=== PATIENT | female | born 1940 | race Caucasian/White ===

== ENCOUNTER 2018-12-21 16:57 | Inpatient (IN) | payer MEDICARE ==
[2018-12-21] MEDS ORDERED: SODIUM CHLORIDE 0.9% 1,000 ML IV ONE (19:32)
[2018-12-21] MEDS ORDERED: LIDOCAINE/EPINEPHR/TETRACAINE 5 ML BOTTLE TOPICAL ONE (19:32)
--- NOTE | 2018-12-21 19:35 | ED ---
ENT HPI - General Source: patient, RN notes reviewed, old records reviewed Mode of arrival: ambulatory Limitations: no limitations <Rasheeda Mann - Last Filed: 12/21/18 23:42> <Beto Adkins - Last Filed: 12/22/18 07:57> - General Chief complaint: ENT Stated complaint: Nose bleed Time Seen by Provider: 12/21/18 18:57 - History of Present Illness Initial comments: Patient is a 78-year-old female presents emergency department today as a transfer from [facility]. She presents emergency room today for an abnormal lab values including low platelets and low hemoglobin. She presented there for a prolonged nosebleed from the right naris. Patient states that she started having nosebleed at 8 PM last night. She is not currently on any blood thinners. She does have a history of leukemia. She reports she's been feeling increased fatigue over the past few days. She states that she has had a history of radiation on her brain. 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 She reports that she refuses nasal packing at [facility]. Patient was sent here for evaluation and ENT consult. (Rasheeda Mann) - Related Data Home Medications Medication Instructions Recorded Confirmed Albuterol Inhaler [Ventolin Hfa 1 - 2 puff INHALATION RT-Q6H PRN 12/21/18 Inhaler] Aspirin EC [Ecotrin Low Dose] 81 mg PO DAILY 12/21/18 12/21/18 Calcium Carbonate [Calcium] 1,200 mg PO DAILY 12/21/18 12/21/18 Cholecalciferol [Vitamin D3] 1,000 unit PO DAILY 12/21/18 12/21/18 Cyanocobalamin [Vitamin B-12] 500 mcg PO HS 12/21/18 12/21/18 Diclofenac Sodium [Voltaren Gel] 2 gram TOPICAL DAILY PRN 12/21/18 12/21/18 Ferrous Sulfate [Feosol] 325 mg PO DAILY 12/21/18 12/21/18 Fluticasone/Salmeterol [Advair 1 puff INHALATION RT-BID 12/21/18 12/21/18 250-50 Diskus] Losartan [Cozaar] 50 mg PO DAILY 12/21/18 12/21/18 Magnesium Oxide [Mag-Ox] 800 mg PO DAILY 12/21/18 12/21/18 Metoprolol Tartrate [Lopressor] 25 mg PO BID 12/21/18 12/21/18 Montelukast [Singulair] 10 mg PO DAILY 12/21/18 12/21/18 Multivitamins, Thera [Multivitamin 1 tab PO HS 12/21/18 12/21/18 (formulary)] Oxybutynin ER [Ditropan Xl] 10 mg PO DAILY 12/21/18 12/21/18 Potassium 99 mg PO DAILY 12/21/18 12/21/18 Pyridoxine [Vitamin B-6] 100 mg PO HS 12/21/18 12/21/18 Ranitidine HCl 150 mg PO BID 12/21/18 12/21/18 sitaGLIPtin [Januvia] 100 mg PO DAILY 12/21/18 12/21/18 valACYclovir HCL [Valacyclovir] 1,000 mg PO DAILY 12/21/18 12/21/18 Allergies Allergy/AdvReac Type Severity Reaction Status Date / Time ciprofloxacin [From Cipro] Allergy Unknown Verified 12/21/18 19:06 metoprolol [From Toprol XL] Allergy Unknown Verified 12/21/18 19:06 omeprazole [From Prilosec] Allergy Unknown Verified 12/21/18 19:06 Penicillins Allergy Unknown Verified 12/21/18 19:06 Sulfa (Sulfonamide Allergy Unknown Verified 12/21/18 19:06 Antibiotics) Review of Systems ROS Other: All systems not noted in ROS Statement are negative. <Rasheeda Mann - Last Filed: 12/21/18 23:42> ROS Other: All systems not noted in ROS Statement are negative. <Beto Adkins - Last Filed: 12/22/18 07:57> ROS Statement: Those systems with pertinent positive or pertinent negative responses have been documented in the HPI. Past Medical History Past Medical History: Asthma, Blood Disorder, Coronary Artery Disease (CAD), Diabetes Mellitus Additional Past Medical History / Comment(s): lymphedema History of Any Multi-Drug Resistant Organisms: None Reported Past Surgical History: Breast Surgery, Cholecystectomy, Hernia Repair, Hysterectomy, Orthopedic Surgery Past Psychological History: No Psychological Hx Reported Smoking Status: Never smoker Past Alcohol Use History: None Reported Past Drug Use History: None Reported <Rasheeda Mann - Last Filed: 12/21/18 23:42> General Exam Limitations: no limitations General appearance: alert, in no apparent distress Head exam: Present: atraumatic, normocephalic, normal inspection Eye exam: Present: normal appearance, PERRL, EOMI. Absent: scleral icterus, conjunctival injection, periorbital swelling ENT exam: Present: normal exam, normal oropharynx, mucous membranes moist, other (Patient has a slow bleeding and epistaxis from the right near. Evidence of previous cautery noted.) Neck exam: Present: normal inspection. Absent: tenderness, meningismus, lymphadenopathy Respiratory exam: Present: normal lung sounds bilaterally. Absent: respiratory distress, wheezes, rales, rhonchi, stridor Cardiovascular Exam: Present: regular rate, normal rhythm, normal heart sounds. Absent: systolic murmur, diastolic murmur, rubs, gallop, clicks GI/Abdominal exam: Present: soft, normal bowel sounds. Absent: distended, tenderness, guarding, rebound, rigid Extremities exam: Present: normal inspection, full ROM, normal capillary refill. Absent: tenderness, pedal edema, joint swelling, calf tenderness Back exam: Present: normal inspection Neurological exam: Present: alert, oriented X3, CN II-XII intact Psychiatric exam: Present: normal affect, normal mood Skin exam: Present: warm, dry, intact, normal color, other (Multiple contusions over her body.). Absent: rash <Rasheeda Mann - Last Filed: 12/21/18 23:42> <Beto Adkins - Last Filed: 12/22/18 07:57> - General Exam Comments Initial Comments: 78-year-old female. Alert and oriented 3. Patient appears in no significant distress. (Rasheeda Mann) Course <Rasheeda Mann - Last Filed: 12/21/18 23:42> <Beto Adkins - Last Filed: 12/22/18 07:57> Vital Signs 12/21/18 12/21/18 12/21/18 17:32 19:53 22:00 Temperature 98 F Pulse Rate 84 81 71 Respiratory 18 16 16 Rate Blood Pressure 136/69 110/70 110/79 O2 Sat by Pulse 95 98 100 Oximetry 12/22/18 00:50 Temperature Pulse Rate 82 Respiratory 16 Rate Blood Pressure 146/54 O2 Sat by Pulse 99 Oximetry - Reevaluation(s) Reevaluation #1: 12/21/18 23:42 Patient is to have bleeding after her trying to instill TX eye ointment to cotton ball of the nose. She eventually agreed to nasal packing. 2 Merocel nasal packing were inserted into the right nare. (Rasheeda Mann) Reevaluation #2: 12/22/18 07:56 CODE BLUE note: Patient had been admitted to the fourth floor roof 482. 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 She apparently is found to have a near syncopal episode/vasovagal episode when trying to get up this morning. She had no loss of consciousness. I did respond to a CODE BLUE to her room. She was awake alert oriented 3 he did appear to be pale she did adequate vital signs upon my examination lung sounds are clear heart sounds were within normal limits regular rate rhythm with an adequate blood pressure. No further intervention on my part was indicated at that time. Care was turned back over to nursing staff for continued evaluation. (Beto Adkins) Procedures <Rasheeda Mann - Last Filed: 12/21/18 23:42> <Beto Adkins - Last Filed: 12/22/18 07:57> - Procedures Initial comment: Patient had right nasal packing using 2 Rossana's. I coated the Lyle cells with antibiotic ointment inserted and thePatient tolerated the procedure well. There is evidence of Afrin. (Rasheeda Mann) Medical Decision Making - Lab Data Result diagrams: 12/21/18 19:45 12/21/18 19:45 <Rasheeda Mann - Last Filed: 12/21/18 23:42> - Lab Data Result diagrams: 12/22/18 06:49 12/22/18 06:49 <Beto Adkins - Last Filed: 12/22/18 07:57> - Medical Decision Making Patient is a 78-year-old female with a history of leukemia currently being treated by Dr. Gunter. They stated that her Leukemia was not benefit to start chemotherapy or radiation. She presents today with complaint of nosebleed for the past day. Her hemoglobin was 8 and [facility]. We rechecked it at this time 07.6. She is continued bleeding. She initially refused nasal packing. I attempted TXa Larissa ball over the nose and the Patient still continued to have bleeding. She eventually agreed to nasal packing. Lab work does show significant leukocytosis. She also states she is scheduled for an iron transfusion according to Dr. Gunter for tomorrow at 10 AM. She has had increased fatigue. Platelets are low at 50 at this time. Patient will be admitted this time for the continued bleeding I will recheck a CBC. Her hemoglobin is less than 7 she'll require transfusion. Vitals have been stable. (Rasheeda Mann) - Lab Data Lab Results 12/21/18 12/21/18 12/21/18 Range/Units 19:45 19:45 19:45 WBC 66.8 H* (3.8-10.6) k/uL RBC 2.65 L (3.80-5.40) m/uL Hgb 7.7 L (11.4-16.0) gm/dL Hct 26.3 L (34.0-46.0) % MCV 99.4 (80.0-100.0) fL MCH 29.2 (25.0-35.0) pg MCHC 29.3 L (31.0-37.0) g/dL RDW 15.5 (11.5-15.5) % Plt Count 52 L (150-450) k/uL Neutrophils % (Manual) 71 % Band Neutrophils % 6 % Lymphocytes % (Manual) 4 % Monocytes % (Manual) 4 % Metamyelocytes % 3 % Myelocytes % 7 % Promyelocytes % 7 % Neutrophils # (Manual) 51.40 H (1.3-7.7) k/uL Lymphocytes # (Manual) 2.67 (1.0-4.8) k/uL Monocytes # (Manual) 2.67 H (0-1.0) k/uL Metamyelocytes # (Man) 2.00 H (0) k/uL Myelocytes # (Manual) 4.68 H (0) k/uL Promyelocytes # (Man) 4.68 H (0) k/uL Nucleated RBCs 0 (0-0) /100 WBC Manual Slide Review Performed Toxic Vacuolation Present Large Platelets Present Polychromasia Present Hypochromasia Marked Poikilocytosis Slight Poikilocytosis (manual Present Macrocytosis Slight PT 10.6 (9.0-12.0) sec INR 1.0 (<1.2) APTT 24.1 (22.0-30.0) sec Sodium 140 (137-145) mmol/L Potassium 4.5 (3.5-5.1) mmol/L Chloride 107 (98-107) mmol/L Carbon Dioxide 24 (22-30) mmol/L Anion Gap 9 mmol/L BUN 41 H (7-17) mg/dL Creatinine 1.04 (0.52-1.04) mg/dL Est GFR (CKD-EPI)AfAm 60 (>60 ml/min/1.73 sqM) Est GFR (CKD-EPI)NonAf 52 (>60 ml/min/1.73 sqM) Glucose 127 H (74-99) mg/dL Calcium 8.6 (8.4-10.2) mg/dL Total Bilirubin 0.5 (0.2-1.3) mg/dL AST 29 (14-36) U/L ALT 24 (9-52) U/L Alkaline Phosphatase 60 (38-126) U/L Total Protein 5.9 L (6.3-8.2) g/dL Albumin 3.6 (3.5-5.0) g/dL Blood Type Blood Type Confirm Blood Type Recheck Antibody Screen Crossmatch Spec Expiration Date 12/21/18 12/21/18 Range/Units 19:45 21:40 WBC (3.8-10.6) k/uL RBC (3.80-5.40) m/uL Hgb (11.4-16.0) gm/dL Hct (34.0-46.0) % MCV (80.0-100.0) fL MCH (25.0-35.0) pg MCHC (31.0-37.0) g/dL RDW (11.5-15.5) % Plt Count (150-450) k/uL Neutrophils % (Manual) % Band Neutrophils % % Lymphocytes % (Manual) % Monocytes % (Manual) % Metamyelocytes % % Myelocytes % % Promyelocytes % % Neutrophils # (Manual) (1.3-7.7) k/uL Lymphocytes # (Manual) (1.0-4.8) k/uL Monocytes # (Manual) (0-1.0) k/uL Metamyelocytes # (Man) (0) k/uL Myelocytes # (Manual) (0) k/uL Promyelocytes # (Man) (0) k/uL Nucleated RBCs (0-0) /100 WBC Manual Slide Review Toxic Vacuolation Large Platelets Polychromasia Hypochromasia Poikilocytosis Poikilocytosis (manual Macrocytosis PT (9.0-12.0) sec INR (<1.2) APTT (22.0-30.0) sec Sodium (137-145) mmol/L Potassium (3.5-5.1) mmol/L Chloride (98-107) mmol/L Carbon Dioxide (22-30) mmol/L Anion Gap mmol/L BUN (7-17) mg/dL Creatinine (0.52-1.04) mg/dL Est GFR (CKD-EPI)AfAm (>60 ml/min/1.73 sqM) Est GFR (CKD-EPI)NonAf (>60 ml/min/1.73 sqM) Glucose (74-99) mg/dL Calcium (8.4-10.2) mg/dL Total Bilirubin (0.2-1.3) mg/dL AST (14-36) U/L ALT (9-52) U/L Alkaline Phosphatase (38-126) U/L Total Protein (6.3-8.2) g/dL Albumin (3.5-5.0) g/dL Blood Type O Positive Blood Type Confirm O Positive Blood Type Recheck CABO Indicated Antibody Screen NEGATIVE Crossmatch See Detail Spec Expiration Date 12/24/2018 - 1738 Disposition Is patient prescribed a controlled substance at d/c from ED?: No Time of Disposition: 23:45 <Rasheeda Mann - Last Filed: 12/21/18 23:42> <Beto Adkins - Last Filed: 12/22/18 07:57> Clinical Impression: Leukemia, Nosebleed Disposition: ADMITTED IP TO THIS [facility] Condition: Stable
[2018-12-21 20:05] LABS: HCT 26.3 % (34.0-46.0); HGB 7.7 gm/dL (11.4-16.0); Hypochromasia Marked; MCH 29.2 pg (25.0-35.0); MCHC 29.3 g/dL (31.0-37.0); MCV 99.4 fL (80.0-100.0); Macrocytosis Slight; Mean Platelet Volume 8.8; Poikilocytosis Slight; RBC 2.65 m/uL (3.80-5.40); RDW 15.5 % (11.5-15.5)
[2018-12-21 20:11] LABS: WBC 66.8 k/uL (3.8-10.6)
[2018-12-21 20:14] LABS: Partial Thromboplastin Time 24.1 sec (22.0-30.0); Prothrombin Time 10.6 sec (9.0-12.0)
[2018-12-21 20:16] LABS: Albumin 3.6 g/dL (3.5-5.0); Calcium 8.6 mg/dL (8.4-10.2); Potassium 4.5 mmol/L (3.5-5.1); Total Bilirubin 0.5 mg/dL (0.2-1.3); Total Protein 5.9 g/dL (6.3-8.2)
[2018-12-21] MEDS ORDERED: TRANEXAMIC ACID 1,000 MG/10 ML VIAL MISCELLANE STA (20:22)
[2018-12-21 20:28] LABS: Band Neutrophils % 6 %; Lymphocytes # (M) 2.67 k/uL (1.0-4.8); Metamyelocytes % 3 %; Monocytes # (M) 2.67 k/uL (0-1.0); Myelocytes # (M) 4.68 k/uL (0); Myelocytes % 7 %; Neutrophils % (M) 71 %; Nucleated Red Blood Cells 0 /100 WBC (0-0); Promyelocytes # (M) 4.68 k/uL (0); Promyelocytes % 7 %; Total Cells Counted 200
[2018-12-21 20:29] LABS: Poikilocytosis (M) Present; Polychromasia Present
[2018-12-21 20:30] LABS: Platelet Count 52 k/uL (150-450)
[2018-12-21 20:31] LABS: Large Platelets Present; Toxic Vacuolation Present
[2018-12-21] MEDS ORDERED: OXYMETAZOLINE 0.05% NASL SPRAY 1 SPRAY BOTTLE NASAL STA (23:19)
[2018-12-21] MEDS ORDERED: LORazepam 2 MG/ML INJ IV STA (23:41)
[2018-12-21] MEDS ORDERED: oxyCODONE-APAP 5-325MG 1 EACH TAB PO PRN (23:47)
[2018-12-21] MEDS ORDERED: LORazepam 2 MG/ML INJ IV PRN (23:47)
[2018-12-21] MEDS ORDERED: NALOXONE 0.4 MG/ML 1 ML VIAL IV PRN (23:47)
[2018-12-22 01:26] LABS: HCT 23.6 % (34.0-46.0); HGB 7.1 gm/dL (11.4-16.0); Hypochromasia Marked; MCH 30.2 pg (25.0-35.0); MCHC 30.3 g/dL (31.0-37.0); MCV 99.8 fL (80.0-100.0); Macrocytosis Slight; Poikilocytosis Slight; RBC 2.36 m/uL (3.80-5.40); RDW 15.6 % (11.5-15.5)
[2018-12-22 01:35] LABS: Platelet Count 51 k/uL (150-450); WBC 62.5 k/uL (3.8-10.6)
[2018-12-22 01:53] LABS: Band Neutrophils % 4 %; Metamyelocytes # (M) 1.25 k/uL (0); Metamyelocytes % 2 %; Monocytes # (M) 1.25 k/uL (0-1.0); Myelocytes # (M) 6.88 k/uL (0); Myelocytes % 11 %; Neutrophils % (M) 73 %; Nucleated Red Blood Cells 0 /100 WBC (0-0); Total Cells Counted 200
[2018-12-22 01:54] LABS: Large Platelets Present; Polychromasia Present
[2018-12-22] MEDS ORDERED: ALBUTEROL NEBULIZED 2.5 MG/3 ML INHALATION PRN (02:05)
[2018-12-22] MEDS ORDERED: DICLOFENAC SODIUM GEL 100 GM TUBE TOPICAL PRN (02:05)
[2018-12-22 07:21] LABS: Anisocytosis Slight; HCT 26.7 % (34.0-46.0); HGB 8.2 gm/dL (11.4-16.0); Hypochromasia Marked; MCH 30.1 pg (25.0-35.0); MCHC 30.8 g/dL (31.0-37.0); MCV 97.7 fL (80.0-100.0); Macrocytosis Slight; Mean Platelet Volume 7.4; Platelet Count 45 k/uL (150-450); Poikilocytosis Moderate; RBC 2.73 m/uL (3.80-5.40); RDW 16.5 % (11.5-15.5)
[2018-12-22 07:22] LABS: WBC 59.2 k/uL (3.8-10.6)
[2018-12-22 07:23] LABS: Calcium 8.2 mg/dL (8.4-10.2); Potassium 4.1 mmol/L (3.5-5.1)
--- NOTE | 2018-12-22 08:45 | US ---
EXAMINATION TYPE: US venous doppler duplex LE BI DATE OF EXAM: 12/22/2018 8:27 AM COMPARISON: NONE CLINICAL HISTORY: bleeding. anemia, no h/o dvt SIDE PERFORMED: bilateral TECHNIQUE: The lower extremity deep venous system is examined utilizing real time linear array sonog leonard with graded compression, doppler sonography and color-flow sonography. VESSELS IMAGED: External Iliac Vein (EIV) Common Femoral Vein Deep Femoral Vein Greater Saphenous Vein * Femoral Vein Popliteal Vein Small Saphenous Vein * Proximal Calf Veins (* superficial vessels) Grayscale, color doppler, spectral doppler imaging performed of the deep veins of the lower extremiti es. There is normal flow, compressibility, vascular waveforms. Right Leg: Appears negative for DVT Left Leg: Appears negative for DVT *only did color flow images with doppler in left popiteal due to A Team being called on patient and u rgency to finish exam. IMPRESSION: No sonographic evidence of deep venous thrombosis within the bilateral lower extremities .
[2018-12-22 09:00] LABS: Band Neutrophils % 4 %; Eosinophils # (M) 1.18 k/uL (0-0.7); Lymphocytes # (M) 2.96 k/uL (1.0-4.8); Metamyelocytes # (M) 0.59 k/uL (0); Metamyelocytes % 1 %; Monocytes # (M) 2.96 k/uL (0-1.0); Myelocytes # (M) 3.55 k/uL (0); Myelocytes % 6 %; Neutrophils % (M) 77 %; Nucleated Red Blood Cells 0 /100 WBC (0-0); Promyelocytes # (M) 1.18 k/uL (0); Promyelocytes % 2 %; Total Cells Counted 200
[2018-12-22] MEDS ORDERED: LOSARTAN 50 MG TAB PO SCH (09:00)
[2018-12-22] MEDS ORDERED: NON-FORMULARY DRUG (Potassium [Potassium] 99 MG) PO SCH (09:00)
[2018-12-22] MEDS ORDERED: FAMOTIDINE 20 MG TAB PO SCH (09:00)
[2018-12-22] MEDS ORDERED: PANTOPRAZOLE 40 MG/10 ML VIAL IV SCH (09:00)
[2018-12-22 09:01] LABS: Polychromasia Present; Toxic Granulation Present
[2018-12-22 09:02] LABS: Anisocytosis (M) Present; Poikilocytosis (M) Present
[2018-12-22] MEDS: SYMBICORT 80-4.5 MCG INHALER INHALATION SCH ×2 (09:05→19:59)
--- NOTE | 2018-12-22 09:12 | HP ---
HISTORY AND PHYSICAL DATE OF SERVICE: 12/21/2018 CHIEF COMPLAINT: Epistaxis. HISTORY OF PRESENT ILLNESS: This 78-year-old woman with a past medical history of apparent leukemia, history of CAD, history of diabetes mellitus type 2, history of lymphedema, breast surgery, cholecystectomy being followed by Dr. Gunter in the outpatient setting was set to see Dr. Gunter tomorrow, but however the patient is complaining of epistaxis from the right naris and the patient was referred from [facility] where the nasal packing was done with some control, but hemoglobin has dropped to 7.7 and 7.1. Transfusion arranged at this time. WBC 62.5, platelets also reduced to 51. The other coagulation parameters are normal. The patient is taking aspirin. There is no history of any fever, rigors. No history of headache, loss of consciousness, seizures. The patient is followed by Dr. Blanca Dominguez in the outpatient setting. PAST MEDICAL HISTORY: History of blood disorder, leukemia, asthma, CAD, diabetes mellitus, lymphedema. MEDICATIONS: Medications prior to admission include the home medications: 1. Ranitidine 150 mg p.o. b.i.d. 2. Valacyclovir 1000 mg daily. 3. Januvia 100 mg p.o. daily. 4. Vitamin B6, 100 mg q.h.s. 5. Potassium 99 mg p.o. daily. 6. Ditropan XL 10 mg p.o. daily. 7. Multivitamins one p.o. daily. 8. Singular 10 mg p.o. daily. 9. Lopressor 25 mg b.i.d. 10.Magnesium oxide 800 mg daily. 11.Cozaar 50 mg p.o. daily. 12.Advair 250/50 one puff b.i.d. 13.Iron sulfate 325 mg daily. 14.Voltaren gel 2 grams daily p.r.n. 15.Vitamin B12, 500 mcg p.o. q.h.s. 16.Vitamin D3, 1000 daily. 17.Calcium 1200 mg p.o. daily. 19.Aspirin 81 mg p.o. daily. 20.Ventolin 1 to 2 puffs q.6 p.r.n. ALLERGIES: Allergies are CIPRO, METOPROLOL, OMEPRAZOLE, PENICILLIN, SULFA. FAMILY HISTORY: No history of heart disease or strokes in the family. SOCIAL HISTORY: No history of smoking. No history of alcohol intake. REVIEW OF SYSTEMS: ENT: As mentioned earlier. CARDIOVASCULAR SYSTEM: No angina. RESPIRATORY SYSTEM: No cough or hemoptysis. : No dysuria. GI: No nausea, vomiting, diarrhea. NERVOUS SYSTEM: No numbness or weakness. ALLERGY/IMMUNOLOGY: No asthma. MUSCULOSKELETAL: As mentioned earlier. HEMATOLOGY/ONCOLOGY: As mentioned earlier. ENDOCRINE: ntd CONSTITUTIONAL: As mentioned earlier. DERMATOLOGY: Negative. RHEUMATOLOGY: Negative. PSYCHIATRY: As mentioned earlier. PHYSICAL EXAMINATION: The patient is alert and oriented x2. Pulse 79, blood pressure is 108/48, respiration 18, temperature 98.5, pulse ox 99% on room air. HEENT: Conjunctiva normal. Epistaxis on the right side which is packed. Neck is no jugular venous distention. No carotid bruit. No lymph node enlargement. CARDIOVASCULAR: S1, S2 muffled. No S3, no S4. RESPIRATORY: Breath sounds diminished at the bases. A few scattered rhonchi. No crackles. ABDOMEN: Soft, nontender. No mass palpable. LEGS: No edema, no swelling. NERVOUS SYSTEM: Higher function as mentioned. Moves all 4 limbs. No focal deficits. LYMPHATICS: No lymphadenopathy of the neck, axillae or groin. SKIN: No ulcer, rash or bleeding. JOINTS: No active deforming arthropathy. LABS: The labs are WBC 66.8, hemoglobin 7.7. Repeat labs are noted. ASSESSMENT: 1. Epistaxis with acute blood loss anemia. 2. History of leukemia. 3. Increased WBC. 4. Thrombocytopenia. 5. History of asthma. 6. History of coronary artery disease. 7. Diabetes mellitus type 2. 8. Lymphedema. 9. History of cholecystectomy. 10.History of hernia surgery. 11.FULL CODE. RECOMMENDATIONS AND DISCUSSION: This 78-year-old woman who presented with multiple complex medical issues, we will monitor the patient closely. Continue the current medications, continue symptomatic treatment. I would recommend 1 unit transfusion, platelets on a p.r.n. basis if the bleeding continues. Otherwise ENT evaluation. Consult Dr. Gunter. Resume the rest of the medications. Hold aspirin. Guarded prognosis because of multiple complex medical issues. Further recommendations to follow. See orders for details. MMODL / IJN: [id number] / MTDD
[2018-12-22] MEDS ORDERED: DILTIAZEM 5 MG/ML 5 ML VIAL IVP STA (09:15)
[2018-12-22] MEDS: DILTIAZEM 125 MG in SODIUM CHLORIDE 0.9% 100 ML IV SCH (10:03)
[2018-12-22] MEDS: CALCIUM CARBONATE 500 MG CHEWABLE PO SCH (12:58)
[2018-12-22] MEDS: CHOLECALCIFEROL 1,000 UNIT TAB PO SCH (12:58)
[2018-12-22 12:59] LABS: Glucose,Whole Blood 142 mg/dL (75-99)
[2018-12-22] MEDS: FERROUS SULFATE 325 MG TAB PO SCH (12:59)
[2018-12-22] MEDS: MAGNESIUM OXIDE 400 MG TAB PO SCH (12:59)
--- NOTE | 2018-12-22 14:26 | P.CONS ---
History of Present Illness - Reason for Consult Consult date: 12/22/18 Cytopenias Requesting physician: Rasheeda Mann - Chief Complaint Cytopenias - History of Present Illness Ms Alegria is a pleasant white female, with overall well-controlled medical problems at baseline. The patient had had a currently stent in her LAD placed in late 2016. The patient had been on Brilinta, and had developed some petechiae in her mouth, in 09/2018. She had a CBC revealing a white count in the 8 the 200,000 range, hemoglobin in the 9-10 range with MCV of 107. Platelets were around 50,000. The patient had a bone marrow aspiration biopsy done at [facility] showing hypercellularity, with 95% cellularity and left-sided shift. She had no evidence of increased blasts (1.1%) , increased fibrosis or dysplastic changes. She did appear to have low iron stores. The patient was found to be negative for JAK2, MPL and CALR mutations. CBC in 02/21 was normal. The patient was admitted in 09/2018 2 [facility] for pneumonia and sepsis. During that time hemoglobin dropped into the 7 range, with platelets down into the 30,000 range. WBC was in the 100,000 range. Differential showed a predominance of neutrophils persistently. The patient received IV iron during her hospitalization. After discharge, she followed up with Dr. Esquivel, at the [facility]. Review of his notes indicates that the patient was felt to have a myeloproliferative disorder, that was not last classifiable at that time. additional gene testing was ordered for completion of workup. Those results were not available at the time of her first consultation here. The patient had an EGD and colonoscopy in 11/25 for her iron deficiency that was negative. She has been taking oral iron. As the patient wanted to follow with hematology closer to home, she was referred here for further evaluation and recommendations The patient has a history of bilateral breast cancer diagnosed in 2001, treated with lumpectomy and radiation. Exact pathology is not known. However she states that she was not recommended chemotherapy, or hormonal treatment after radiation. the patient is being seen to set up hematology care for her recent diagnosis of myeloproliferative disorder. Diagnostic circumstances as described. At this time the patient is actually fairly asymptomatic other than fatigue which is chronic. She does not appear to have any evidence of splenomegaly. CT chest abdomen and pelvis from 09/24 had not shown any significant pathology - The pathology and implications were discussed in detail with her and her family. Her CBC today shows a persistent leukocytosis with neutrophilia, though the levels are improved at 70,000. The clinical picture is quite consistent with a myeloproliferative disorder. However with absence of significant fibrosis, as well as marker mutations, at this time, this appears to be an unspecified type. Additional gene testing was ordered with the myeloid DX panel at the [facility] but those results are not available. I have requested again through the office. GI workup is negative so far. She is following with gastroenterology at [facility] - Platelets remained low, though in the same range. She tends to bruise easily , but only on her extremities where she has thin skin. She is currently on baby aspirin. Per Dr. Esquivel this was felt to be likely safe for her to take , based on risk benefit given her history of CA at the time she was seen in office her counts were in safe range (2 days ago), with no definite gene target , as well as return of performance status and symptomatic to baseline, the recommendation would be to follow her with observation. Signs and symptoms of progression were discussed in detail. - EGD and colonoscopy reports as well as bone marrow reports have been requested from [facility]. I have asked our office to request because was not located in office chart today. Myeloid DX results will be requested from [facility] again as well - Multiple labs, as well as physician notes , CT reports reviewed and summarized above. On 12/20/18 when seen in office WBC 70K (mostly comprised of neutrophils. , Hemoglobin 9.9, Platlets 27K. Iron Deficiency was evidenced with Saturation 8.7% , and Ferritin 55, Iron = 29, Vitamin B12 studies sufficient She presented to emergency room from [facility] with persistent nose bleed failed to clot. Review of Systems A 14 point review of systems assessed and completed and all neg exceptr HPI. Past Medical History Past Medical History: Asthma, Blood Disorder, Coronary Artery Disease (CAD), Diabetes Mellitus Additional Past Medical History / Comment(s): lymphedema History of Any Multi-Drug Resistant Organisms: None Reported Past Surgical History: Breast Surgery, Cholecystectomy, Hernia Repair, Hysterectomy, Orthopedic Surgery Past Anesthesia/Blood Transfusion Reactions: No Reported Reaction Past Psychological History: No Psychological Hx Reported Smoking Status: Never smoker Past Alcohol Use History: None Reported Past Drug Use History: None Reported - Past Family History Father History Unknown: Yes Medications and Allergies Home Medications Medication Instructions Recorded Confirmed Type Albuterol Inhaler [Ventolin Hfa 1 - 2 puff INHALATION RT-Q6H PRN 12/21/18 History Inhaler] Aspirin EC [Ecotrin Low Dose] 81 mg PO DAILY 12/21/18 12/21/18 History Calcium Carbonate [Calcium] 1,200 mg PO DAILY 12/21/18 12/21/18 History Cholecalciferol [Vitamin D3] 1,000 unit PO DAILY 12/21/18 12/21/18 History Cyanocobalamin [Vitamin B-12] 500 mcg PO HS 12/21/18 12/21/18 History Diclofenac Sodium [Voltaren Gel] 2 gram TOPICAL DAILY PRN 12/21/18 12/21/18 History Ferrous Sulfate [Feosol] 325 mg PO DAILY 12/21/18 12/21/18 History Fluticasone/Salmeterol [Advair 1 puff INHALATION RT-BID 12/21/18 12/21/18 History 250-50 Diskus] Losartan [Cozaar] 50 mg PO DAILY 12/21/18 12/21/18 History Magnesium Oxide [Mag-Ox] 800 mg PO DAILY 12/21/18 12/21/18 History Metoprolol Tartrate [Lopressor] 25 mg PO BID 12/21/18 12/21/18 History Montelukast [Singulair] 10 mg PO DAILY 12/21/18 12/21/18 History Multivitamins, Thera [Multivitamin 1 tab PO HS 12/21/18 12/21/18 History (formulary)] Oxybutynin ER [Ditropan Xl] 10 mg PO DAILY 12/21/18 12/21/18 History Potassium 99 mg PO DAILY 12/21/18 12/21/18 History Pyridoxine [Vitamin B-6] 100 mg PO HS 12/21/18 12/21/18 History Ranitidine HCl 150 mg PO BID 12/21/18 12/21/18 History sitaGLIPtin [Januvia] 100 mg PO DAILY 12/21/18 12/21/18 History valACYclovir HCL [Valacyclovir] 1,000 mg PO DAILY 12/21/18 12/21/18 History Allergies Allergy/AdvReac Type Severity Reaction Status Date / Time ciprofloxacin [From Cipro] Allergy Unknown Verified 12/21/18 19:06 metoprolol [From Toprol XL] Allergy Unknown Verified 12/21/18 19:06 omeprazole [From Prilosec] Allergy Unknown Verified 12/21/18 19:06 Penicillins Allergy Unknown Verified 12/21/18 19:06 Sulfa (Sulfonamide Allergy Unknown Verified 12/21/18 19:06 Antibiotics) Physical Exam Vitals: Vital Signs Temp Pulse Pulse Resp BP BP Pulse Ox 12/22/18 09:21 103.0 F H 161 H 22 100/51 99 12/22/18 09:11 103.0 F H 151 H 22 94/74 98 12/22/18 07:00 99.7 F H 100 14 109/44 94 L 12/22/18 03:42 98.7 F 83 22 112/53 91 L 12/22/18 02:24 98.6 F 81 20 107/49 94 L 12/22/18 01:54 98.5 F 79 18 108/48 99 12/22/18 01:44 97.5 F L 72 18 126/59 100 12/22/18 01:08 97.6 F 79 18 146/51 100 12/22/18 00:50 82 16 146/54 99 12/21/18 22:00 71 16 110/79 100 12/21/18 19:53 81 16 110/70 98 12/21/18 17:32 98 F 84 18 136/69 95 Intake and Output 12/21/18 12/22/18 12/22/18 22:59 06:59 14:59 Intake Total 0 0 Balance 0 0 Intake: Blood Product 0 0 Platelet Irr Pheresis 0 Acda Unit [id number] Rc Pheresis 2 As3 Unit 0 [id number] Other: Voiding Method Toilet Indwelling Catheter # Voids 2 Weight 73.936 kg Gen: Alert and Oriented, NAD Neck: Supple, Trachea Midline Head NC, NT Lungs: Diminished Bibasilar, No increased effort Heart: Tachy, Reg Abdomen: Soft, ND, NT Ext: BLE Edema No lymphadenopathy Results CBC & Chem 7: 12/22/18 06:49 12/22/18 06:49 Labs: Abnormal Lab Results - Last 24 Hours (Table) 12/21/18 12/21/18 12/21/18 Range/Units 19:45 19:45 19:45 WBC 66.8 H* (3.8-10.6) k/uL RBC 2.65 L (3.80-5.40) m/uL Hgb 7.7 L (11.4-16.0) gm/dL Hct 26.3 L (34.0-46.0) % MCHC 29.3 L (31.0-37.0) g/dL RDW (11.5-15.5) % Plt Count 52 L (150-450) k/uL Neutrophils # (Manual) 51.40 H (1.3-7.7) k/uL Lymphocytes # (Manual) (1.0-4.8) k/uL Monocytes # (Manual) 2.67 H (0-1.0) k/uL Eosinophils # (Manual) (0-0.7) k/uL Metamyelocytes # (Man) 2.00 H (0) k/uL Myelocytes # (Manual) 4.68 H (0) k/uL Promyelocytes # (Man) 4.68 H (0) k/uL Pathologist Review See comment A Chloride (98-107) mmol/L BUN 41 H (7-17) mg/dL Glucose 127 H (74-99) mg/dL POC Glucose (mg/dL) (75-99) mg/dL Calcium (8.4-10.2) mg/dL Total Protein 5.9 L (6.3-8.2) g/dL Crossmatch See Detail 12/22/18 12/22/18 12/22/18 Range/Units 01:00 06:49 06:49 WBC 62.5 H* 59.2 H* (3.8-10.6) k/uL RBC 2.36 L 2.73 L (3.80-5.40) m/uL Hgb 7.1 L 8.2 L (11.4-16.0) gm/dL Hct 23.6 L 26.7 L (34.0-46.0) % MCHC 30.3 L 30.8 L (31.0-37.0) g/dL RDW 15.6 H 16.5 H (11.5-15.5) % Plt Count 51 L 45 L (150-450) k/uL Neutrophils # (Manual) 48.10 H 47.90 H (1.3-7.7) k/uL Lymphocytes # (Manual) 5.00 H (1.0-4.8) k/uL Monocytes # (Manual) 1.25 H 2.96 H (0-1.0) k/uL Eosinophils # (Manual) 1.18 H (0-0.7) k/uL Metamyelocytes # (Man) 1.25 H 0.59 H (0) k/uL Myelocytes # (Manual) 6.88 H 3.55 H (0) k/uL Promyelocytes # (Man) 1.18 H (0) k/uL Pathologist Review Chloride 108 H (98-107) mmol/L BUN 42 H (7-17) mg/dL Glucose 118 H (74-99) mg/dL POC Glucose (mg/dL) (75-99) mg/dL Calcium 8.2 L (8.4-10.2) mg/dL Total Protein (6.3-8.2) g/dL Crossmatch 12/22/18 Range/Units 12:57 WBC (3.8-10.6) k/uL RBC (3.80-5.40) m/uL Hgb (11.4-16.0) gm/dL Hct (34.0-46.0) % MCHC (31.0-37.0) g/dL RDW (11.5-15.5) % Plt Count (150-450) k/uL Neutrophils # (Manual) (1.3-7.7) k/uL Lymphocytes # (Manual) (1.0-4.8) k/uL Monocytes # (Manual) (0-1.0) k/uL Eosinophils # (Manual) (0-0.7) k/uL Metamyelocytes # (Man) (0) k/uL Myelocytes # (Manual) (0) k/uL Promyelocytes # (Man) (0) k/uL Pathologist Review Chloride (98-107) mmol/L BUN (7-17) mg/dL Glucose (74-99) mg/dL POC Glucose (mg/dL) 142 H (75-99) mg/dL Calcium (8.4-10.2) mg/dL Total Protein (6.3-8.2) g/dL Crossmatch Assessment and Plan Plan: Assessment and Recommendations 1. Leukocytosis - Left shit. - Recent diagnosis at [facility] with [employer] Dr. Stuart for a myloproliferative disorder, although per dictation appears to have no identifiable molecular markers to indicate a specific type at this time. I have requested the reports to be uploaded to system - She will likely require Stem Cell Transplant for Treatment. 2. Normocytic Microchromic Anemia: Secondary to Underlying Myeloproliferative diagnosis and Acute Blood Loss Anemia - Transfuse Hemoglobin less than 7 - ALL PRODUCTS IRRADIATED< LEKOREDUCE< CMV NEG PLEASE as she is potential Stem Cell Transplant Candidate - Parental Iron after confirmation of no bacteremia. 3. Thrombocytopenia: - Transfuse for s/s bleeding under 50K and/or less than 10K 4. Epistaxis: Improved 5. Febrile - Secondary to number one versus transfusion - Also resonable to rule out underlying infection: Blood Cultures x2, Chest Xray and UA C and S - Check Influenza. Viral Swab. Physician Attest: I have completed the full history and physical and devloped the impression and plan, I agree with above dictations by Ramona Abel NP. Dictated as a scribe
[2018-12-22 15:03] LABS: Partial Thromboplastin Time 24.9 sec (22.0-30.0)
--- NOTE | 2018-12-22 15:04 | XR ---
EXAMINATION TYPE: XR chest 1V portable DATE OF EXAM: 12/22/2018 COMPARISON: NONE HISTORY: Fever of unknown origin TECHNIQUE: Single frontal view of the chest is obtained. FINDINGS: Biapical lucency suggests a component of underlying emphysema. Cardiomediastinal silhouett e is mildly enlarged. Mild multilevel degenerative changes of the spine are noted. No sizable pneumot horax or pleural effusion. No focal consolidation. Generalized osseous demineralization is seen with moderate degenerative changes of the acromioclavicular joints. Surgical mireya are seen within the c hest wall soft tissues. IMPRESSION: No focal consolidation to suggest just pneumonia. Mildly enlarged cardiomediastinal silh ouette.
[2018-12-22] MEDS: MONTELUKAST 10 MG TAB PO SCH (15:55)
[2018-12-22] MEDS: LINAGLIPTIN 5 MG TABLET PO SCH (16:01)
[2018-12-22] MEDS: METOPROLOL TARTRATE 25 MG TAB PO SCH (16:33)
[2018-12-22 16:37] LABS: Glucose,Whole Blood 136 mg/dL (75-99)
[2018-12-22] MEDS: OXYBUTYNIN 10 MG TAB.ER.24 PO SCH (16:37)
[2018-12-22] MEDS: valACYclovir HCL 1,000 MG TABLET PO SCH (16:37)
--- NOTE | 2018-12-22 17:41 | PN ---
PROGRESS NOTE DATE OF SERVICE: 12/22/2018. 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 The patient apparently had epistaxis which could be multifactorial. The patient also had blood-loss anemia. The patient was seeing Dr. Cruz previously. The patient received blood transfusion and platelet transfusion at this time. The ENT evaluation in progress also. WBC 59.9, hemoglobin is 8.2 this morning. PAST MEDICAL HISTORY: Reviewed. REVIEW OF SYSTEMS: ENT: Mentioned earlier. Cardiovascular System: No angina or palpitations. Respiratory: No cough. GI as mentioned earlier. : No dysuria. MEDICARE COMPLIANCE AUDITOR: No focal deficits. CURRENT MEDICATIONS ARE: Reviewed and include: 1. Ventolin 2.5 q.6h p.r.n. 3. TUMS daily. 4. Vitamin D3 1000 daily. 5. Vitamin B12 500 mg daily. 6. Voltaren gel. 7. Diltiazem 5 mg daily. 8. Tradjenta 5 mg p.o. daily. 9. Ativan 0.5 mg q.h.s. 10.Cozaar. 11.Magnesium oxide. 12.Singular. 13.Narcan. 14.Ditropan. 15.Protonix. 16.Valtrex. 17.Vitamin B6. PHYSICAL EXAM: Patient is alert, oriented x3. Pulse is 130, regular. Blood pressure is 100/ 40. Respiration 20. Temperature normal. Pulse ox 91% on room air. HEENT: Conjunctivae pale. Otherwise oral mucosa moist. Neck is no jugular venous distention. No carotid bruit. No lymph node enlargement. Cardiovascular system: S1, S2 regular. RESPIRATORY: Breath sounds diminished in the bases. Bilateral scattered rhonchi and crackles. ABDOMEN: Soft, nontender. No mass palpable. Legs are no edema. No swelling. NEUROLOGICAL: No focal deficits. LAB STUDIES: WBC 9.9, hemoglobin is 8.2, platelets of 45. Other labs are noted. ASSESSMENT: 1. Acute epistaxis with acute blood loss anemia status post transfusion. 2. 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 3. Paroxysmal atrial fibrillation with fast ventricular rate. 4. Thrombocytopenia. 5. Increased WBC. 6. History of asthma. 7. History of coronary artery disease. 8. Diabetes mellitus type 2. 9. Lymphedema. 10.History of cholecystectomy. 11.History of hernia surgery. 12.FULL CODE. RECOMMENDATIONS AND DISCUSSION: Recommend to continue current medication, continue with monitoring. Symptomatic treatment. Otherwise at this time we will repeat labs. ENT evaluation. The hemoglobin appears to be stable at this time at 8.2. We will repeat blood count. Closely follow with Hematology/Oncology. The patient might need further platelet transfusions and blood transfusion depending upon the hematology parameters. Otherwise, prognosis guarded because of multiple complex medical issues. Cardizem has been initiated for the atrial fibrillation. Cardiology is consulted. Further recommendations to follow. MMODL / IJN: [id number] / GLYNN
--- NOTE | 2018-12-22 18:37 | ECHOF ---
Referral Reason:afib MEASUREMENTS -------- HEIGHT: 172.7 cm WEIGHT: 73.9 kg BP: 100/46 RVIDd: 3.4 cm (< 3.3) IVSd: 1.3 cm (0.6 - 1.1) LVIDd: 5.6 cm (3.9 - 5.3) LVPWd: 1.3 cm (0.6 - 1.1) IVSs: 1.5 cm LVIDs: 4.1 cm LVPWs: 1.5 cm LA Diam: 5.1 cm (2.7 - 3.8) LAESV Index (A-L): 41.17 ml/m Ao Diam: 2.7 cm (2.0 - 3.7) AV Cusp: 1.6 cm (1.5 - 2.6) LA Diam: 4.7 cm (2.7 - 3.8) EPSS: 0.6 cm RAP: 5.00 mmHg RVSP: 39.12 mmHg MV EF SLOPE: 103.06 mm/s (70 - 150) MV EXCURSION: 1.70 cm (> 18.000) FINDINGS -------- Resting tachycardia (HR>100bpm). This was a technically adequate study. The left ventricular size is normal. There is mild concentric left ventricular hypertrophy. Overa ll left ventricular systolic function is normal with, an EF between 55 - 60 %. The right ventricle is mildly enlarged. LA is severely dilated >40 ml/m2 RA appears enlarged. Aortic valve is trileaflet and is mildly thickened. There is no evidence of aortic regurgitation. There is no evidence of aortic stenosis. The mitral valve leaflets are mildly thickened. Mild mitral annular calcification present. Modera te mitral regurgitation is present. Mild tricuspid regurgitation present. There is mild pulmonary hypertension. The right ventricular systolic pressure, as measured by Doppler, is 39.12mmHg. Trace/mild (physiologic) pulmonic regurgitation. The aortic root size is normal. Normal inferior vena cava with normal inspiratory collapse consistent with estimated right atrial pre ssure of 5 mmHg. There is a small, generalized pericardial effusion present. CONCLUSIONS -------- 1. Resting tachycardia (HR>100bpm). 2. This was a technically adequate study. 3. The left ventricular size is normal. 4. There is mild concentric left ventricular hypertrophy. 5. Overall left ventricular systolic function is normal with, an EF between 55 - 60 %. 6. The right ventricle is mildly enlarged. 7. LA is severely dilated >40 ml/m2 8. RA appears enlarged. 9. Aortic valve is trileaflet and is mildly thickened. 10. The mitral valve leaflets are mildly thickened. 11. Mild mitral annular calcification present. 12. Moderate mitral regurgitation is present. 13. Mild tricuspid regurgitation present. 14. There is mild pulmonary hypertension. 15. The right ventricular systolic pressure, as measured by Doppler, is 39.12mmHg. 16. Trace/mild (physiologic) pulmonic regurgitation. 17. The aortic root size is normal. 18. There is a small, generalized pericardial effusion present. PRINT FINISHING WORKER: Aleksey Joel RDCS
--- NOTE | 2018-12-22 19:48 | CONS ---
CONSULTATION Mrs. Alegria is a 78-year-old female who was transferred from [place] for persistent epistaxis. Patient has a history of coronary artery disease, status post stenting of the LAD in [address] Singh. She also has a history of hypertension, diet-controlled diabetes mellitus, and a history of myeloproliferative disease. The patient has had significant epistaxis requiring packing. Today she went to the bathroom and became dizzy, hypotensive and somewhat disoriented but did not have syncope. Upon her return to her bed, she went into atrial fibrillation with rapid ventricular response. She is awake and alert at this time. She continues to be in atrial fibrillation with episodes of rapid ventricular response. She has no prior history of atrial fibrillation. She saw her director of supply chain in August and at that time was stable. She had no symptoms of exertional chest discomfort. She has some symptoms of dyspnea with exertion. She denies any significant peripheral edema. She has no dizziness, palpitation or syncope. Her coronary risk factors are remarkable for the history of hypertension, remote history of smoking. She is diabetic and hyperlipidemic. MEDICATIONS: 1. Ranitidine. 2. Valacyclovir. 3. Januvia. 4. Potassium. 5. Ditropan. 6. Singulair 10 mg daily. 7. Lopressor 25 mg twice a day. 8. Cozaar 50 mg daily. 9. Advair. 10.Iron. 11.Voltaren. 12.Calcium. 13.Aspirin. REVIEW OF SYSTEMS: RESPIRATORY SYSTEM: She has history of asthma but no recent cough or fever. GI SYSTEM: She has no recent GI bleeding, no peptic ulcer disease. SYSTEM: No dysuria or hematuria. NERVOUS SYSTEM: No history of stroke or seizure. PHYSICAL EXAMINATION: This is a 78-year-old female, alert and oriented, in no apparent distress. Packing in place. Blood pressure 100/46 with a heart rate in the 130s. HEAD: Normocephalic. Eyes: Sclerae anicteric. NECK: No bruit. LUNGS: No wheezes or rales. HEART: Irregularly irregular. S1, S2. No S3. With a systolic murmur at the base, ejection type. No diastolic murmur. No rub. ABDOMEN: Soft, nontender. Positive bowel sounds. No organomegaly. EXTREMITIES: Plus one edema. LAB DATA: White blood cells of 66,000, hemoglobin of 7.7, platelet count of 52. BUN and creatinine of 41 and 1.04 on admission. Today her white blood cells are 59.2, hemoglobin 8.2, platelet count of 45,000. Her BUN creatinine are 42 and 0.89. Her EKG revealed atrial fibrillation with rapid ventricular response and nonspecific ST- T wave changes. Her EKG shows no clear infiltrate. IMPRESSION: 1. Atrial fibrillation, new onset. Patient presented in sinus mechanism. Rapid ventricular response. The patient is not a candidate for anticoagulation in view of her pancytopenia and recent epistaxis. 2. History of coronary artery disease, status post stenting of the LAD in 2017; appears to be stable. 3. Myeloproliferative disease, followed by Dr. Gunter. 4. Anemia. 5. Thrombocytopenia. 6. History of hypertension. 7. History of diabetes. RECOMMENDATIONS: From the cardiac standpoint, I will continue on the beta giacomo. I will stop her losartan because of her low blood pressure. She is on IV Cardizem at this time. We will obtain echocardiogram with Doppler. I will also check her thyroid function tests. I will add a statin to her regimen in view of her coronary artery disease and diabetes. Depending on her progress, further recommendations will be made. At this time she is not a candidate for anticoagulation. I have discussed those finding with the patient and her . Thank you for this consult. Will follow with you. NEEL / JOSE: [id number] /
--- NOTE | 2018-12-22 20:03 | CONS ---
CONSULTATION REASON FOR CONSULTATION: Epistaxis. HISTORY: This is a 78-year-old white female who was admitted last night after arriving from [facility] with uncontrolled epistaxis. The epistaxis had gone on for about a day. She has had epistaxis on a lifelong basis intermittently and has had nasal packing as well as cauterization at various points. She had cauterization in [place] at one point that helped for a few years as an adult. 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 She in September had developed petechiae and was ultimately diagnosed with leukemia and has had thrombocytopenia since then. She has had anemia and iron deficiency as well as platelets of 27,000 recently, just 2 days ago. She did have attempted cautery of the right side of the nose in [place], which was not helpful. She refused packing. She presented to the ER last night and Merocel packs were placed in the right side of the nose. She did have some mild bleeding since then, but currently this is controlled. She has been seen by her oncologist, but no notes are in the chart as yet. PAST MEDICAL HISTORY: Positive for: 1. Asthma. 2. Leukemia. 3. Coronary artery disease. 4. Diabetes. PAST SURGICAL HISTORY: 1. Breast surgery. 2. Cholecystectomy. 3. Herniorrhaphy. 4. Hysterectomy. 5. Orthopedic surgery. ALLERGIES: 1. CIPRO. 2. TOPROL. 3. PENICILLIN. 4. OMEPRAZOLE. 5. SULFA. HOME MEDICATIONS: 1. Albuterol. 2. Calcium. 3. Vitamin D. 4. B12. 5. Voltaren. 6. Feosol. 7. Advair Diskus. 8. Losartan. 9. Lopressor. 10.Magnesium oxide. 11.Singulair. 12.Oxybutynin. 13.Potassium. 14.Vitamin B6. 15.Ranitidine. 16.Januvia. 17.Aspirin, which has been held. REVIEW OF SYSTEMS: As noted in the chart already. Noncontributory other than as above. PHYSICAL EXAMINATION: Febrile earlier but is afebrile now. Vital signs overall are stable otherwise. GENERAL: Well-developed elderly white female in no acute distress. HEENT: Head normocephalic, atraumatic. Ears: Bilaterally the canals are good. Tympanic membranes unremarkable and mobile. Nose shows old blood, left nasal cavity. No active bleeding. There is nasal septal perforation which appears well healed. There are 2 Merocel packs in the right side of the nose which have old blood but no active bleeding. The oropharynx shows no posterior bleeding. The neck is supple without adenopathy or tenderness. ASSESSMENT: 1. Right-sided epistaxis. 2. Anemia. 3. Thrombocytopenia. 4. Leukemia. PLAN: The patient currently has 2 Merocel packs in the right side of the nose, and this has stabilized her epistaxis. Therefore these will be left in place for at least 2 more days and therefore through the weekend. Her aspirin has been held. Certainly there is an issue with her thrombocytopenia, and this may lend itself to continued bleeding with or without the packing. Depending on her inpatient status, she may be able to have these packs removed in our office as an outpatient or as an inpatient if she is still here in the hospital early next week. She does have a long history of epistaxis, and this likely is compounded by the previous radiotherapy also. Will track the patient's status, and if there are questions in the meantime, please feel free to contact me. Dr. Ugalde will be covering call on Tuesday and Tuesday. MMODL / IJN: [id number] /
[2018-12-22 20:37] LABS: Glucose,Whole Blood 127 mg/dL (75-99)
[2018-12-22] MEDS: MULTIVITAMINS, THERA 1 EACH TAB PO SCH (21:10)
[2018-12-22] MEDS: CYANOCOBALAMIN 500 MCG TAB PO SCH (21:10)
[2018-12-22] MEDS: ACETAMINOPHEN TAB 325 MG TAB PO PRN (21:11)
[2018-12-22] MEDS: PYRIDOXINE 50 MG TAB PO SCH (23:09)
[2018-12-23] MEDS: METOPROLOL TARTRATE 25 MG TAB PO SCH ×3 (00:41→22:15)
[2018-12-23 05:21] LABS: Anisocytosis Slight; Hypochromasia Marked; MCH 29.4 pg (25.0-35.0); MCHC 30.2 g/dL (31.0-37.0); MCV 97.3 fL (80.0-100.0); Macrocytosis Slight; Mean Platelet Volume 6.7; Poikilocytosis Moderate; RBC 2.06 m/uL (3.80-5.40); RDW 16.3 % (11.5-15.5)
[2018-12-23 05:22] LABS: Platelet Count 63 k/uL (150-450)
[2018-12-23 05:27] LABS: Magnesium 2.4 mg/dL (1.6-2.3)
[2018-12-23 06:56] LABS: Band Neutrophils % 8 %; Lymphocytes # (M) 2.72 k/uL (1.0-4.8); Metamyelocytes # (M) 1.09 k/uL (0); Metamyelocytes % 2 %; Monocytes # (M) 4.34 k/uL (0-1.0); Myelocytes # (M) 1.63 k/uL (0); Myelocytes % 3 %; Neutrophils % (M) 74 %; Nucleated Red Blood Cells 2 /100 WBC (0-0); Promyelocytes # (M) 1.09 k/uL (0); Promyelocytes % 2 %; Total Cells Counted 200; WBC 54.3 k/uL (3.8-10.6)
[2018-12-23] MEDS: SYMBICORT 80-4.5 MCG INHALER INHALATION SCH ×2 (06:59→20:35)
[2018-12-23 07:07] LABS: Glucose,Whole Blood 122 mg/dL (75-99)
[2018-12-23] MEDS: FERROUS SULFATE 325 MG TAB PO SCH (09:17)
[2018-12-23] MEDS: CHOLECALCIFEROL 1,000 UNIT TAB PO SCH (09:17)
[2018-12-23] MEDS: MONTELUKAST 10 MG TAB PO SCH (09:17)
[2018-12-23] MEDS: MAGNESIUM OXIDE 400 MG TAB PO SCH (09:17)
[2018-12-23] MEDS: ATORVASTATIN 40 MG TAB PO SCH (09:17)
[2018-12-23] MEDS: LINAGLIPTIN 5 MG TABLET PO SCH (09:17)
[2018-12-23] MEDS: ACETAMINOPHEN TAB 325 MG TAB PO PRN (09:17)
[2018-12-23] MEDS: CALCIUM CARBONATE 500 MG CHEWABLE PO SCH (09:18)
[2018-12-23] MEDS: valACYclovir HCL 1,000 MG TABLET PO SCH (10:19)
[2018-12-23] MEDS: OXYBUTYNIN 10 MG TAB.ER.24 PO SCH (10:19)
[2018-12-23 12:27] LABS: Glucose,Whole Blood 127 mg/dL (75-99)
[2018-12-23 12:54] LABS: Anisocytosis Slight; HCT 23.1 % (34.0-46.0); HGB 7.3 gm/dL (11.4-16.0); Hypochromasia Marked; MCH 30.2 pg (25.0-35.0); MCHC 31.5 g/dL (31.0-37.0); MCV 95.8 fL (80.0-100.0); Macrocytosis Slight; Mean Platelet Volume 8.5; Poikilocytosis Moderate; RBC 2.41 m/uL (3.80-5.40); RDW 16.7 % (11.5-15.5)
[2018-12-23 12:57] LABS: WBC 58.9 k/uL (3.8-10.6)
[2018-12-23 13:21] LABS: Platelet Count 57 k/uL (150-450)
--- NOTE | 2018-12-23 15:58 | PN ---
PROGRESS NOTE DATE OF SERVICE: 12/23/2018. HISTORY: This 78-year-old woman was admitted with acute epistaxis, also had ongoing myeloproliferative disorder. Patient also has thrombocytopenia. ENT and Cardiology are following the patient closely. Patient has a nasal packing. No chest pain. No palpitations. No fever. REVIEW OF SYSTEMS: CARDIOVASCULAR: No angina. RESPIRATORY: As mentioned. GI: As mentioned. : No nausea. NERVOUS SYSTEM: No numbness or weakness. EXAM: Alert and oriented x3. Pulse is 66, blood pressure 100/56, respirations 18, temperature 97.2, pulse ox 94% on room air. HEENT: Conjunctivae normal. NECK: No JVD. HEART: S1 and S2 muffled. LUNGS: Breath sounds diminished in the bases. Few scattered rhonchi. ABDOMEN: Soft. NERVOUS SYSTEM: No focal deficits. LABS: WBC ntd, platelets are 57. Other labs are noted. MEDICATIONS: Current medications reviewed, include: 1. Tylenol 650 every 4 hours p.r.n. 2. Ventolin 2.5. 3. Lipitor. 4. Symbicort b.i.d. 5. Tums. 6. Vitamins D3. 7. Vitamin B12. 8. Cardizem. 9. Ativan. 10.Lopressor. 11.Singular. 12.Ditropan. 13.Percocet. 14.Vitamin B6. 15.Valtrex. ASSESSMENT: 1. Acute epistaxis right-sided with acute blood loss anemia status post transfusions. 2. History of ongoing myeloproliferative disorder, possibly chronic myeloid leukemia. 3. Paroxysmal atrial fibrillation with fast ventricular rate. 4. Thrombocytopenia. 5. Increased WBC. 6. History of asthma. 7. History of coronary artery disease. 8. Diabetes mellitus type 2. 9. History of cholecystectomy. 10.History of hernia surgery. 11.FULL CODE. DISCUSSION: In this 72-year-old gentleman who presented with multiple complex medical issues , we will monitor the patient closely, continue the current management. Continue nasal packing. White count is elevated. We will continue to monitor. Hold antiplatelet agents and anticoagulation. The patient is on beta blockers as well. Further recommendations to follow. MMODL / IJN: [id number] / MTDD
--- NOTE | 2018-12-23 16:34 | P.PN ---
Subjective Progress Note Date: 12/23/18 Principal diagnosis: Myeloproliferative Disease, Leukocytosis, Bicytopenia Hemoglobin was 6 this am and received 2 units of irradiated PRBC, repeat 7.1. Objective - Vital Signs Vital signs: Vital Signs Temp 97.4 F L 12/23/18 12:00 Pulse 66 12/23/18 12:00 Resp 18 12/23/18 13:42 BP 100/56 12/23/18 12:00 Pulse Ox 94 L 12/23/18 12:00 Intake & Output 12/22/18 12/23/18 12/23/18 18:59 06:59 18:59 Intake Total 610 120 740 Output Total 306 642 4496 Balance -15 -520 -910 Weight 74.5 kg Intake: IV 70 120 80 NS 70 120 80 Intake, IV Titration 40 Amount Diltiazem 125 mg In 40 Sodium Chloride 0.9% 100 ml @ 10 MG/HR 10 mls/hr IV .[id number] [facility] Rx#: [id number] Oral 500 350 Blood Product 0 310 Platelet Irr Pheresis 0 Acda Unit [id number] Rc Irr As1 Unit 310 [id number] Output: Urine 224 219 5900 Uretheral (Mueller) 600 Other: Voiding Method Indwelling Catheter Indwelling Catheter Indwelling Catheter - Exam Gen: Alert and Oriented, NAD Neck: Supple, Trachea Midline Head NC, NT Lungs: Diminished Bibasilar, No increased effort Heart: Tachy, Reg Abdomen: Soft, ND, NT Ext: BLE Edema No lymphadenopathy - Labs CBC & Chem 7: 12/23/18 12:40 12/23/18 04:46 Labs: Abnormal Lab Results - Last 24 Hours (Table) 12/21/18 12/22/18 12/22/18 Range/Units 19:45 16:28 20:35 WBC (3.8-10.6) k/uL RBC (3.80-5.40) m/uL Hgb (11.4-16.0) gm/dL Hct (34.0-46.0) % MCHC (31.0-37.0) g/dL RDW (11.5-15.5) % Plt Count (150-450) k/uL Neutrophils # (Manual) (1.3-7.7) k/uL Monocytes # (Manual) (0-1.0) k/uL Metamyelocytes # (Man) (0) k/uL Myelocytes # (Manual) (0) k/uL Promyelocytes # (Man) (0) k/uL Nucleated RBCs (0-0) /100 WBC Chloride (98-107) mmol/L BUN (7-17) mg/dL Creatinine (0.52-1.04) mg/dL Glucose (74-99) mg/dL POC Glucose (mg/dL) 136 H 127 H (75-99) mg/dL Calcium (8.4-10.2) mg/dL Magnesium (1.6-2.3) mg/dL Crossmatch See Detail 12/23/18 12/23/18 12/23/18 Range/Units 04:46 04:46 07:05 WBC 54.3 H* (3.8-10.6) k/uL RBC 2.06 L (3.80-5.40) m/uL Hgb 6.0 L* D (11.4-16.0) gm/dL Hct 20.0 L (34.0-46.0) % MCHC 30.2 L (31.0-37.0) g/dL RDW 16.3 H (11.5-15.5) % Plt Count 63 L (150-450) k/uL Neutrophils # (Manual) 44.50 H (1.3-7.7) k/uL Monocytes # (Manual) 4.34 H (0-1.0) k/uL Metamyelocytes # (Man) 1.09 H (0) k/uL Myelocytes # (Manual) 1.63 H (0) k/uL Promyelocytes # (Man) 1.09 H (0) k/uL Nucleated RBCs 2 H (0-0) /100 WBC Chloride 108 H (98-107) mmol/L BUN 46 H (7-17) mg/dL Creatinine 1.10 H (0.52-1.04) mg/dL Glucose 107 H (74-99) mg/dL POC Glucose (mg/dL) 122 H (75-99) mg/dL Calcium 8.0 L (8.4-10.2) mg/dL Magnesium 2.4 H (1.6-2.3) mg/dL Crossmatch 12/23/18 12/23/18 Range/Units 12:25 12:40 WBC 58.9 H* (3.8-10.6) k/uL RBC 2.41 L (3.80-5.40) m/uL Hgb 7.3 L (11.4-16.0) gm/dL Hct 23.1 L (34.0-46.0) % MCHC (31.0-37.0) g/dL RDW 16.7 H (11.5-15.5) % Plt Count 57 L (150-450) k/uL Neutrophils # (Manual) (1.3-7.7) k/uL Monocytes # (Manual) (0-1.0) k/uL Metamyelocytes # (Man) (0) k/uL Myelocytes # (Manual) (0) k/uL Promyelocytes # (Man) (0) k/uL Nucleated RBCs (0-0) /100 WBC Chloride (98-107) mmol/L BUN (7-17) mg/dL Creatinine (0.52-1.04) mg/dL Glucose (74-99) mg/dL POC Glucose (mg/dL) 127 H (75-99) mg/dL Calcium (8.4-10.2) mg/dL Magnesium (1.6-2.3) mg/dL Crossmatch Assessment and Plan Plan: Assessment and Recommendations 1. Leukocytosis - Left shit. - Recent diagnosis at [facility] with Enterprise Application Administrator Dr. Stuart for a myloproliferative disorder, although per dictation appears to have no identifiable molecular markers to indicate a specific type at this time. I have requested the reports to be uploaded to system - She will likely require Stem Cell Transplant for Treatment. 2. Normocytic Microchromic Anemia: Secondary to Underlying Myeloproliferative diagnosis and Acute Blood Loss Anemia - Transfuse Hemoglobin less than 7 - ALL PRODUCTS IRRADIATED< LEKOREDUCE< CMV NEG PLEASE as she is potential Stem Cell Transplant Candidate - Parental Iron ordered - Transfusion 2 units today hemoglobin 6 3. Thrombocytopenia: - Transfuse for s/s bleeding under 50K and/or less than 10K 4. Epistaxis: Improved 5. Febrile - Secondary to number one versus transfusion - Also resonable to rule out underlying infection: Blood Cultures x2, Chest Xray and UA C and S - Check Influenza. Viral Swab. Afebrile since 12/22/18 @1600 Plan: - recheck CBC, Mag, Phos, Uric Acid, BMP in am - Continue supportive care and transfusions - Will continue to follow along with you Physician Attest: I have discussed the completed history and physical and devloped the impression and plan, I agree with above dictations by Ramona Abel NP. Dictated as a scribe
[2018-12-23 16:42] LABS: Glucose,Whole Blood 150 mg/dL (75-99)
[2018-12-23] MEDS: DILTIAZEM 125 MG in SODIUM CHLORIDE 0.9% 100 ML IV SCH (17:52)
[2018-12-23 19:18] LABS: Anisocytosis Slight; HCT 24.6 % (34.0-46.0); HGB 7.8 gm/dL (11.4-16.0); Hypochromasia Marked; MCH 30.4 pg (25.0-35.0); MCHC 31.9 g/dL (31.0-37.0); MCV 95.3 fL (80.0-100.0); Mean Platelet Volume 7.5; Poikilocytosis Marked; RBC 2.58 m/uL (3.80-5.40); RDW 16.6 % (11.5-15.5)
[2018-12-23 19:24] LABS: WBC 67.9 k/uL (3.8-10.6)
[2018-12-23 19:43] LABS: Platelet Count 63 k/uL (150-450)
[2018-12-23 20:53] LABS: Glucose,Whole Blood 146 mg/dL (75-99)
[2018-12-23] MEDS: CYANOCOBALAMIN 500 MCG TAB PO SCH (22:15)
[2018-12-23] MEDS: PYRIDOXINE 50 MG TAB PO SCH (22:15)
[2018-12-23] MEDS: MULTIVITAMINS, THERA 1 EACH TAB PO SCH (22:16)
[2018-12-24] MEDS: SYMBICORT 80-4.5 MCG INHALER INHALATION SCH ×2 (05:56→20:01)
[2018-12-24 06:20] LABS: Glucose,Whole Blood 121 mg/dL (75-99)
[2018-12-24 07:02] LABS: Anisocytosis Slight; HCT 23.2 % (34.0-46.0); HGB 7.2 gm/dL (11.4-16.0); Hypochromasia Marked; MCH 29.4 pg (25.0-35.0); MCHC 30.8 g/dL (31.0-37.0); MCV 95.5 fL (80.0-100.0); Mean Platelet Volume 8.3; Platelet Count 52 k/uL (150-450); Poikilocytosis Moderate; RBC 2.43 m/uL (3.80-5.40); RDW 16.8 % (11.5-15.5)
[2018-12-24 07:09] LABS: Calcium 8.1 mg/dL (8.4-10.2); Magnesium 2.4 mg/dL (1.6-2.3); Phosphorus 3.5 mg/dL (2.5-4.5); Potassium 3.9 mmol/L (3.5-5.1); Uric Acid 10.4 mg/dL (3.7-7.4)
[2018-12-24 07:29] LABS: Band Neutrophils % 3 %; Eosinophils # (M) 0.61 k/uL (0-0.7); Monocytes # (M) 1.22 k/uL (0-1.0); Myelocytes # (M) 2.44 k/uL (0); Myelocytes % 4 %; Nucleated Red Blood Cells 0 /100 WBC (0-0)
[2018-12-24 07:30] LABS: Lymphocytes # (M) 5.49 k/uL (1.0-4.8); Neutrophils % (M) 80 %; Polychromasia Present; Promyelocytes # (M) 1.22 k/uL (0); Promyelocytes % 2 %; Total Cells Counted 200
[2018-12-24] MEDS: METOPROLOL TARTRATE 25 MG TAB PO SCH ×2 (08:53→20:38)
[2018-12-24] MEDS: ATORVASTATIN 40 MG TAB PO SCH (08:53)
[2018-12-24] MEDS: OXYBUTYNIN 10 MG TAB.ER.24 PO SCH (08:53)
[2018-12-24] MEDS: CALCIUM CARBONATE 500 MG CHEWABLE PO SCH (08:53)
[2018-12-24] MEDS: MONTELUKAST 10 MG TAB PO SCH (08:53)
[2018-12-24] MEDS: LINAGLIPTIN 5 MG TABLET PO SCH (08:53)
[2018-12-24] MEDS: CHOLECALCIFEROL 1,000 UNIT TAB PO SCH (08:53)
[2018-12-24] MEDS: MAGNESIUM OXIDE 400 MG TAB PO SCH (08:53)
[2018-12-24] MEDS: FERROUS SULFATE 325 MG TAB PO SCH (08:53)
[2018-12-24] MEDS: valACYclovir HCL 1,000 MG TABLET PO SCH (08:54)
[2018-12-24 12:06] LABS: Glucose,Whole Blood 118 mg/dL (75-99)
--- NOTE | 2018-12-24 14:53 | P.PN ---
Subjective Progress Note Date: 12/24/18 This is a pleasant 70-year-old female with history of coronary artery disease and prior LAD stent which was performed in 2016. She had been on Brilinta and developed some petechiae in her mouth in September 2018. She had been admitted to the hospital and [facility] for pneumonia and sepsis back in September 2018. She did receive iron during that hospitalization. She underwent an EGD and colonoscopy in November for iron deficiency which was negative. During this entire time it has been noted that the patient's platelets were low and remained low. She initially presented on this occasion to [facility] with a nosebleed and failure to clot. A cardiology consultation was initially requested because the patient went into atrial fibrillation.. The patient was seen and examined today, she continues to be in and out of A. fib but overall her heart rate maintains adequate control. She cannot be on anticoagulation in view of her pancytopenia and recent epistaxis. Objective - Vital Signs Vital signs: Vital Signs Temp 97.6 F 12/24/18 12:00 Pulse 112 H 12/24/18 12:00 Resp 20 12/24/18 12:00 BP 122/64 12/24/18 12:00 Pulse Ox 100 12/24/18 12:00 Intake & Output 12/23/18 12/24/18 12/24/18 18:59 06:59 18:59 Intake Total 740 240 Output Total 1350 750 Balance -610 -750 240 Weight 80 kg Intake: IV 80 NS 80 Oral 350 240 Blood Product 310 Rc Irr As1 Unit 310 [id number] Output: Urine 1350 750 Uretheral (Mueller) 300 400 Other: Voiding Method Indwelling Catheter Indwelling Catheter Indwelling Catheter # Voids 1 # Bowel Movements 1 - Exam PHYSICAL EXAMINATION: GENERAL: 78-year-old female in no acute distress at the time of my examination. HEENT: Head is atraumatic, normocephalic. Pupils equal, round. Sclera anicteric. Conjunctiva are clear. Mucous membranes of the mouth are moist. Neck is supple. There is no elevated jugular venous pressure.] bruit is heard. Patient does havepacking in. HEART EXAMINATION: Heart S1 S2 1 systolic murmur is heard at the base. CHEST EXAMINATION: Lungs are clear to auscultation and precussion. No chest wall tenderness is noted on palpation or with deep breathing. ABDOMEN: Soft, nontender. Bowel sounds are heard. No organomegaly noted. EXTREMITIES: 2+ peripheral pulses with trace evidence of peripheral edema and no calf tenderness noted. NEUROLOGIC patient is awake, alert and oriented x3. . - Labs CBC & Chem 7: 12/24/18 06:32 12/24/18 06:32 Labs: Abnormal Lab Results - Last 24 Hours (Table) 12/23/18 12/23/18 12/23/18 Range/Units 16:39 18:38 20:51 WBC 67.9 H* (3.8-10.6) k/uL RBC 2.58 L (3.80-5.40) m/uL Hgb 7.8 L (11.4-16.0) gm/dL Hct 24.6 L (34.0-46.0) % MCHC (31.0-37.0) g/dL RDW 16.6 H (11.5-15.5) % Plt Count 63 L (150-450) k/uL Neutrophils # (Manual) (1.3-7.7) k/uL Lymphocytes # (Manual) (1.0-4.8) k/uL Monocytes # (Manual) (0-1.0) k/uL Myelocytes # (Manual) (0) k/uL Promyelocytes # (Man) (0) k/uL Chloride (98-107) mmol/L BUN (7-17) mg/dL Glucose (74-99) mg/dL POC Glucose (mg/dL) 150 H 146 H (75-99) mg/dL Uric Acid (3.7-7.4) mg/dL Calcium (8.4-10.2) mg/dL Magnesium (1.6-2.3) mg/dL 12/24/18 12/24/18 12/24/18 Range/Units 06:18 06:32 06:32 WBC 61.0 H* (3.8-10.6) k/uL RBC 2.43 L (3.80-5.40) m/uL Hgb 7.2 L (11.4-16.0) gm/dL Hct 23.2 L (34.0-46.0) % MCHC 30.8 L (31.0-37.0) g/dL RDW 16.8 H (11.5-15.5) % Plt Count 52 L (150-450) k/uL Neutrophils # (Manual) 50.60 H (1.3-7.7) k/uL Lymphocytes # (Manual) 5.49 H (1.0-4.8) k/uL Monocytes # (Manual) 1.22 H (0-1.0) k/uL Myelocytes # (Manual) 2.44 H (0) k/uL Promyelocytes # (Man) 1.22 H (0) k/uL Chloride 111 H (98-107) mmol/L BUN 34 H (7-17) mg/dL Glucose 108 H (74-99) mg/dL POC Glucose (mg/dL) 121 H (75-99) mg/dL Uric Acid 10.4 H (3.7-7.4) mg/dL Calcium 8.1 L (8.4-10.2) mg/dL Magnesium 2.4 H (1.6-2.3) mg/dL 12/24/18 Range/Units 11:21 WBC (3.8-10.6) k/uL RBC (3.80-5.40) m/uL Hgb (11.4-16.0) gm/dL Hct (34.0-46.0) % MCHC (31.0-37.0) g/dL RDW (11.5-15.5) % Plt Count (150-450) k/uL Neutrophils # (Manual) (1.3-7.7) k/uL Lymphocytes # (Manual) (1.0-4.8) k/uL Monocytes # (Manual) (0-1.0) k/uL Myelocytes # (Manual) (0) k/uL Promyelocytes # (Man) (0) k/uL Chloride (98-107) mmol/L BUN (7-17) mg/dL Glucose (74-99) mg/dL POC Glucose (mg/dL) 118 H (75-99) mg/dL Uric Acid (3.7-7.4) mg/dL Calcium (8.4-10.2) mg/dL Magnesium (1.6-2.3) mg/dL Microbiology - Last 24 Hours (Table) 12/22/18 14:23 Blood Culture - Preliminary Blood No Growth after 24 hours Assessment and Plan Plan: Assessment and plan #1 paroxysmal atrial fibrillation patient not a candidate for anticoagulation because of pancytopenia and recent epistaxis #2 known history of coronary artery disease with prior LAD stent in 2017 #3 mild proliferative disease #4 anemia #5 thrombocytopenia #6 hypertension #7 diabetes Plan From cardiology's perspective we will continue this patient on her current medications. We'll follow her along with you now on an as-needed basis only, please don't hesitate to call us if he has any questions. DNP note has been reviewed, I agree with a documented findings and plan of care. Patient was seen and examined.
--- NOTE | 2018-12-24 16:51 | P.PN ---
Subjective Progress Note Date: 12/24/18 Principal diagnosis: Myeloproliferative Disease, Leukocytosis, Bicytopenia Hemoglobin was 7.2 and stable today Objective - Vital Signs Vital signs: Vital Signs Temp 97.9 F 12/24/18 16:00 Pulse 120 H 12/24/18 16:00 Resp 19 12/24/18 16:00 BP 140/53 12/24/18 16:00 Pulse Ox 97 12/24/18 16:00 Intake & Output 12/23/18 12/24/18 12/24/18 18:59 06:59 18:59 Intake Total 740 240 Output Total 6472 393 8594 Balance -107 -846 -066 Weight 80 kg Intake: IV 80 NS 80 Oral 350 240 Blood Product 310 Rc Irr As1 Unit 310 [id number] Output: Urine 5359 533 8653 Uretheral (Mueller) 668 593 1664 Other: Voiding Method Indwelling Catheter Indwelling Catheter Toilet # Voids 1 # Bowel Movements 1 - Exam Gen: Alert and Oriented, NAD Neck: Supple, Trachea Midline Head NC, NT Lungs: Diminished Bibasilar, No increased effort Heart: Tachy, Reg Abdomen: Soft, ND, NT Ext: BLE Edema No lymphadenopathy - Labs CBC & Chem 7: 12/24/18 06:32 12/24/18 06:32 Labs: Abnormal Lab Results - Last 24 Hours (Table) 12/23/18 12/23/18 12/24/18 Range/Units 18:38 20:51 06:18 WBC 67.9 H* (3.8-10.6) k/uL RBC 2.58 L (3.80-5.40) m/uL Hgb 7.8 L (11.4-16.0) gm/dL Hct 24.6 L (34.0-46.0) % MCHC (31.0-37.0) g/dL RDW 16.6 H (11.5-15.5) % Plt Count 63 L (150-450) k/uL Neutrophils # (Manual) (1.3-7.7) k/uL Lymphocytes # (Manual) (1.0-4.8) k/uL Monocytes # (Manual) (0-1.0) k/uL Myelocytes # (Manual) (0) k/uL Promyelocytes # (Man) (0) k/uL Chloride (98-107) mmol/L BUN (7-17) mg/dL Glucose (74-99) mg/dL POC Glucose (mg/dL) 146 H 121 H (75-99) mg/dL Uric Acid (3.7-7.4) mg/dL Calcium (8.4-10.2) mg/dL Magnesium (1.6-2.3) mg/dL 12/24/18 12/24/18 12/24/18 Range/Units 06:32 06:32 11:21 WBC 61.0 H* (3.8-10.6) k/uL RBC 2.43 L (3.80-5.40) m/uL Hgb 7.2 L (11.4-16.0) gm/dL Hct 23.2 L (34.0-46.0) % MCHC 30.8 L (31.0-37.0) g/dL RDW 16.8 H (11.5-15.5) % Plt Count 52 L (150-450) k/uL Neutrophils # (Manual) 50.60 H (1.3-7.7) k/uL Lymphocytes # (Manual) 5.49 H (1.0-4.8) k/uL Monocytes # (Manual) 1.22 H (0-1.0) k/uL Myelocytes # (Manual) 2.44 H (0) k/uL Promyelocytes # (Man) 1.22 H (0) k/uL Chloride 111 H (98-107) mmol/L BUN 34 H (7-17) mg/dL Glucose 108 H (74-99) mg/dL POC Glucose (mg/dL) 118 H (75-99) mg/dL Uric Acid 10.4 H (3.7-7.4) mg/dL Calcium 8.1 L (8.4-10.2) mg/dL Magnesium 2.4 H (1.6-2.3) mg/dL Microbiology - Last 24 Hours (Table) 12/22/18 14:23 Blood Culture - Preliminary Blood No Growth after 48 hours Assessment and Plan Plan: Assessment and Recommendations 1. Leukocytosis - Left shit. - Recent diagnosis at [facility] with Clinical Education Academic Coordinator Dr. Stuart for a myloproliferative disorder, although per dictation appears to have no identifiable molecular markers to indicate a specific type at this time. I have requested the reports to be uploaded to system - She will likely require Stem Cell Transplant for Treatment. 2. Normocytic Microchromic Anemia: Secondary to Underlying Myeloproliferative diagnosis and Acute Blood Loss Anemia - Transfuse Hemoglobin less than 7 - ALL PRODUCTS IRRADIATED< LEKOREDUCE< CMV NEG PLEASE as she is potential Stem Cell Transplant Candidate - Parental Iron ordered - Transfusion 2 units 12/23 hemoglobin 6 - 7.2 today 3. Thrombocytopenia: - Transfuse for s/s bleeding under 50K and/or less than 10K 4. Epistaxis: Improved 5. Febrile - Secondary to number one versus transfusion - Also resonable to rule out underlying infection: Blood Cultures x2, Chest Xray and UA C and S - Check Influenza. Viral Swab. Afebrile since 12/22/18 @1600 Plan: - recheck CBC daily - No transfusions required today - Continue monitoring epistaxis Physician Attest: I have discussed the completed history and physical and devloped the impression and plan, I agree with above dictations by Ramona Abel NP. Dictated as a scribe
[2018-12-24 16:56] LABS: Glucose,Whole Blood 128 mg/dL (75-99)
--- NOTE | 2018-12-24 17:44 | PN ---
PROGRESS NOTE DATE OF SERVICE: 12/24/2018. This 78-year-old woman was admitted with epistaxis, being closely monitored. The patient also complains of some purulent discharge from the nose. Multiple consultants including ENT and as well as Hematology Oncology are following the patient closely. No chest pain. No palpitations. No fever. EXAM: Alert and oriented x3. Pulse 120, blood pressure 140/73, respiration 19, temperature 97.8, pulse ox 97% on room air. HEENT: Conjunctivae normal. NECK: No jugular venous distention. CARDIOVASCULAR: S1, S2. RESPIRATORY: Breath sounds diminished in the bases. A few scattered rhonchi and crackles. ABDOMEN: Soft, nontender. LEGS: No edema. NERVOUS SYSTEM: No focal deficits. LAB STUDIES: WBC 6.1, hemoglobin 7.2, sodium 140, potassium 3.9. ASSESSMENT: 1. Acute epistaxis right-sided with acute blood loss anemia, status post transfusion. 2. History of ongoing myeloproliferative disorder, possibly chronic myeloid leukemia. 3. Paroxysmal atrial fibrillation with fast ventricular rate. 4. Thrombocytopenia. 5. Increased WBC. 6. History of asthma. 7. History of coronary artery disease. 8. Diabetes mellitus type 2. 9. History of cholecystectomy. 10.History of hernia surgery. 11.FULL CODE. RECOMMENDATIONS AND DISCUSSION: I recommend to continue current management, continue monitoring, and symptomatic treatment. Will add antibiotics. Otherwise, closely follow with Cardiology and as well as multiple consultants. Guarded prognosis because of multiple complex medical issues. Further recommendations to follow. MMODL / IJN: [id number] /
[2018-12-24] MEDS ORDERED: TEMAZEPAM 15 MG CAP PO PRN (17:45)
[2018-12-24] MEDS: CYANOCOBALAMIN 500 MCG TAB PO SCH (20:38)
[2018-12-24] MEDS: MULTIVITAMINS, THERA 1 EACH TAB PO SCH (20:38)
[2018-12-24] MEDS: PYRIDOXINE 50 MG TAB PO SCH (20:38)
[2018-12-24 20:41] LABS: Glucose,Whole Blood 133 mg/dL (75-99)
[2018-12-25 06:46] LABS: Glucose,Whole Blood 115 mg/dL (75-99)
[2018-12-25 06:53] LABS: Anisocytosis Slight; HCT 25.2 % (34.0-46.0); HGB 7.7 gm/dL (11.4-16.0); Hypochromasia Marked; MCH 29.9 pg (25.0-35.0); MCHC 30.4 g/dL (31.0-37.0); MCV 98.4 fL (80.0-100.0); Macrocytosis Slight; Poikilocytosis Moderate; RBC 2.56 m/uL (3.80-5.40); RDW 17.2 % (11.5-15.5)
[2018-12-25 07:05] LABS: Calcium 8.4 mg/dL (8.4-10.2); Potassium 4.2 mmol/L (3.5-5.1)
[2018-12-25 07:14] LABS: WBC 69.8 k/uL (3.8-10.6)
[2018-12-25 07:15] LABS: Platelet Count 46 k/uL (150-450)
[2018-12-25] MEDS: SYMBICORT 80-4.5 MCG INHALER INHALATION SCH ×2 (08:40→20:12)
[2018-12-25] MEDS: valACYclovir HCL 1,000 MG TABLET PO SCH (09:13)
[2018-12-25] MEDS: OXYBUTYNIN 10 MG TAB.ER.24 PO SCH (09:13)
[2018-12-25] MEDS: MAGNESIUM OXIDE 400 MG TAB PO SCH (09:13)
[2018-12-25] MEDS: CHOLECALCIFEROL 1,000 UNIT TAB PO SCH (09:13)
[2018-12-25] MEDS: METOPROLOL TARTRATE 25 MG TAB PO SCH ×2 (09:13→19:52)
[2018-12-25] MEDS: ATORVASTATIN 40 MG TAB PO SCH (09:13)
[2018-12-25] MEDS: FERROUS SULFATE 325 MG TAB PO SCH (09:13)
[2018-12-25] MEDS: CALCIUM CARBONATE 500 MG CHEWABLE PO SCH (09:13)
[2018-12-25] MEDS: MONTELUKAST 10 MG TAB PO SCH (09:13)
[2018-12-25] MEDS: LINAGLIPTIN 5 MG TABLET PO SCH (09:13)
[2018-12-25 09:54] LABS: Band Neutrophils % 5 %; Lymphocytes # (M) 3.49 k/uL (1.0-4.8); Metamyelocytes # (M) 3.49 k/uL (0); Metamyelocytes % 5 %; Monocytes # (M) 2.79 k/uL (0-1.0); Myelocytes # (M) 4.89 k/uL (0); Myelocytes % 7 %; Neutrophils % (M) 76 %; Nucleated Red Blood Cells 0 /100 WBC (0-0); Polychromasia Present; Total Cells Counted 200
[2018-12-25 11:26] LABS: Glucose,Whole Blood 125 mg/dL (75-99)
[2018-12-25 16:53] LABS: Glucose,Whole Blood 146 mg/dL (75-99)
--- NOTE | 2018-12-25 19:09 | P.PN ---
Subjective Progress Note Date: 12/25/18 Principal diagnosis: MPD, iron deficiency Pt seen in f/u, she is awaiting discontinuation of the packing in her nose, denies any other bleeding at this time Objective - Vital Signs Vital signs: Vital Signs Temp 98.1 F 12/25/18 16:00 Pulse 110 H 12/25/18 16:00 Resp 18 12/25/18 16:00 BP 126/62 12/25/18 16:00 Pulse Ox 96 12/25/18 16:00 Intake & Output 12/25/18 12/25/18 12/26/18 06:59 18:59 06:59 Intake Total 10 240 Output Total 1200 Balance 10 -960 Weight 75 kg Intake: IV 10 NS 10 Oral 240 Output: Urine 1200 Other: Voiding Method Toilet # Voids 3 - Constitutional General appearance: Present: average body habitus, cooperative, no acute distress - EENT EENT Comment(s): pt breath is foul, r/t the packing in the nose, no fresh blood in mouth or nares - Respiratory Respiratory: bilateral: CTA - Cardiovascular Heart sounds: normal: S1, S2 - Gastrointestinal General gastrointestinal: Present: normal bowel sounds - Neurologic Neurologic: Present: CNII-XII intact - Musculoskeletal Musculoskeletal: Present: strength equal bilaterally - Psychiatric Psychiatric: Present: A&O x's 3, appropriate affect, intact judgment & insight - Labs CBC & Chem 7: 12/25/18 06:25 12/25/18 06:25 Labs: Abnormal Lab Results - Last 24 Hours (Table) 12/21/18 12/24/18 12/25/18 Range/Units 19:45 20:18 06:20 WBC (3.8-10.6) k/uL RBC (3.80-5.40) m/uL Hgb (11.4-16.0) gm/dL Hct (34.0-46.0) % MCHC (31.0-37.0) g/dL RDW (11.5-15.5) % Plt Count (150-450) k/uL Neutrophils # (Manual) (1.3-7.7) k/uL Monocytes # (Manual) (0-1.0) k/uL Metamyelocytes # (Man) (0) k/uL Myelocytes # (Manual) (0) k/uL Chloride (98-107) mmol/L BUN (7-17) mg/dL Glucose (74-99) mg/dL POC Glucose (mg/dL) 133 H 115 H (75-99) mg/dL Crossmatch See Detail 12/25/18 12/25/18 12/25/18 Range/Units 06:25 06:25 11:24 WBC 69.8 H* (3.8-10.6) k/uL RBC 2.56 L (3.80-5.40) m/uL Hgb 7.7 L (11.4-16.0) gm/dL Hct 25.2 L (34.0-46.0) % MCHC 30.4 L (31.0-37.0) g/dL RDW 17.2 H (11.5-15.5) % Plt Count 46 L (150-450) k/uL Neutrophils # (Manual) 56.50 H (1.3-7.7) k/uL Monocytes # (Manual) 2.79 H (0-1.0) k/uL Metamyelocytes # (Man) 3.49 H (0) k/uL Myelocytes # (Manual) 4.89 H (0) k/uL Chloride 111 H (98-107) mmol/L BUN 22 H (7-17) mg/dL Glucose 105 H (74-99) mg/dL POC Glucose (mg/dL) 125 H (75-99) mg/dL Crossmatch 12/25/18 Range/Units 16:51 WBC (3.8-10.6) k/uL RBC (3.80-5.40) m/uL Hgb (11.4-16.0) gm/dL Hct (34.0-46.0) % MCHC (31.0-37.0) g/dL RDW (11.5-15.5) % Plt Count (150-450) k/uL Neutrophils # (Manual) (1.3-7.7) k/uL Monocytes # (Manual) (0-1.0) k/uL Metamyelocytes # (Man) (0) k/uL Myelocytes # (Manual) (0) k/uL Chloride (98-107) mmol/L BUN (7-17) mg/dL Glucose (74-99) mg/dL POC Glucose (mg/dL) 146 H (75-99) mg/dL Crossmatch Microbiology - Last 24 Hours (Table) 12/22/18 14:23 Blood Culture - Preliminary Blood No Growth after 72 hours Assessment and Plan (1) Myeloproliferative disorder Narrative/Plan: Pt just established care with Dr. Gunter earlier this month. Her labs here are near her baseline. Increased WBC is mostly neutrophiles, range is stable. Plt stable. Hgb is down from baseline of 9 but, she is noted to have iron deficiency. This will be supplemented after treatment of infection. There are some test results still coming from [facility] in [place]. F/U already sched with Dr. Gunter, appt in chart Follow CBC, no acute intervention Current Visit: Yes Status: Chronic Priority: Medium Code(s): D47.1 - CHRONIC MYELOPROLIFERATIVE DISEASE SNOMED Code(s): 905556410
[2018-12-25] MEDS: MULTIVITAMINS, THERA 1 EACH TAB PO SCH (19:52)
[2018-12-25] MEDS: PYRIDOXINE 50 MG TAB PO SCH (19:52)
[2018-12-25] MEDS: CYANOCOBALAMIN 500 MCG TAB PO SCH (19:52)
--- NOTE | 2018-12-25 20:17 | PN ---
PROGRESS NOTE DATE OF SERVICE: 12/25/2018 This 78-year-old woman was admitted with acute epistaxis, right-sided, with acute blood loss anemia. The patient is being closely monitored at this time. The patient also has ongoing myeloproliferative disorder. No chest pain. No palpitations. No fever. On exam, alert and oriented x3. Pulse 110, 124/66, respiration 18, temperature 98.6, pulse ox 94% on room air. HEENT: Conjunctivae normal. NECK: No jugular venous distention. CARDIOVASCULAR SYSTEM: S1, S2 muffled. RESPIRATORY SYSTEM: Breath sounds diminished at the bases. A few scattered rhonchi. ABDOMEN: Soft. NERVOUS SYSTEM: No focal deficit. LABS: WBC 69.8, hemoglobin 7.7. Sodium 142, potassium 4.2. ASSESSMENT: 1. Acute epistaxis, right-sided, with acute blood loss anemia, status post transfusion. 2. History of ongoing myeloproliferative disorder, possibly chronic myeloid leukemia. 3. Paroxysmal atrial fibrillation with a fast ventricular rate. 4. Thrombocytopenia. 5. Increased white count. 6. History of asthma. 7. History of coronary artery disease. 8. History of diabetes mellitus, type 2. 9. History of cholecystectomy. 10.History of hernia surgery. 11.FULL CODE. RECOMMENDATIONS AND DISCUSSION: I recommend to continue current medications, continue with the monitoring, symptomatic treatment. Repeat labs. Increase ambulation. Further recommendations to follow. Follow closely with ENT. NEEL / JOSE: [id number] /
[2018-12-25 20:50] LABS: Glucose,Whole Blood 123 mg/dL (75-99)
--- NOTE | 2018-12-25 21:53 | PN ---
PROGRESS NOTE CHIEF COMPLAINT: Epistaxis history This patient had 2 Merocel packs placed in the right side of the nose late last week. This has controlled her bleeding despite the fact that she is still thrombocytopenic from a myeloproliferative disorder. She did develop a little bit of purulence from the nose, therefore was started on ceftriaxone. She has been doing well with no further epistaxis. PHYSICAL EXAM: The patient is alert, awake, in no acute distress. The nasal exam shows some old blood on the Merocel packs, but no active bleeding on either side of the nose. There are 2 Merocel packs on the right side. There was some mild purulence also. These were removed without difficulty. 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 There was a small bleeding point at the posterior edge of the perspiration perforation on the left. This was cauterized with silver nitrate, which controlled the bleeding. This was done endoscopically under endoscopic visualization. The remainder of the nasal cavities appeared unremarkable other than the fact that again this is a well-healed nasal septal perforation. ASSESSMENT: 1. Posterior epistaxis. 2. Thrombocytopenia. PLAN: The patient is currently controlled. I have explained to her that she should avoid nose blowing for 2 weeks. She is at risk for recurrent epistaxis due to dryness from turbulent airflow with the septum missing and she has in fact had epistaxis in the past. Apparently she had radiation treatments as a child for her sinus infections and recalls this at age 7 and has had difficulties with dryness of the nose ever since then. She is at increased risk of epistaxis also due to thrombocytopenia. Would avoid anticoagulants if possible. Nasal moisturization including humidification at home is in order and I reviewed this with her also today. She will follow up in our office as needed on as needed basis, but she will call if she has questions. If there are any questions or concerns, please free to contact me. Indication then is a procedure note also. MMODL / IJN: [id number] /
--- NOTE | 2018-12-25 22:02 | PCN ---
PROCEDURE NOTE PREOP DIAGNOSIS: Posterior abscess. POSTOP DIAGNOSIS: Posterior abscess. PROCEDURE: Nasal endoscopy with control of hemorrhage/cauterization. ANESTHESIA: None. COMPLICATIONS: None. BLOOD LOSS: Minimal. Less than 2 mL. COMPLICATIONS: None. PROCEDURE: The patient was in her hospital bed. She had 2 Merocel packs in the right side of the nose removed and there was some mild bleeding from the left posterior edge of the nasal septal perforation, which is almost complete. This was examined endoscopically with a 0 degree endoscope and silver nitrate cauterization was utilized to control the bleeding. The patient tolerated this well with no complications. MMODL / IJN: [id number] /
[2018-12-26 06:45] LABS: Glucose,Whole Blood 101 mg/dL (75-99)
[2018-12-26 08:16] LABS: Anisocytosis Slight; HCT 22.7 % (34.0-46.0); Hypochromasia Marked; MCH 29.8 pg (25.0-35.0); MCHC 29.9 g/dL (31.0-37.0); MCV 99.4 fL (80.0-100.0); Macrocytosis Slight; Mean Platelet Volume 7.6; Poikilocytosis Moderate; RBC 2.29 m/uL (3.80-5.40); RDW 17.4 % (11.5-15.5); WBC 48.7 k/uL (3.8-10.6)
[2018-12-26 08:18] LABS: Platelet Count 42 k/uL (150-450)
[2018-12-26 08:20] LABS: HGB 6.8 gm/dL (11.4-16.0)
[2018-12-26 08:30] LABS: Calcium 8.1 mg/dL (8.4-10.2); Potassium 3.9 mmol/L (3.5-5.1)
[2018-12-26 08:41] LABS: Band Neutrophils % 8 %; Lymphocytes # (M) 3.41 k/uL (1.0-4.8); Metamyelocytes # (M) 1.46 k/uL (0); Metamyelocytes % 3 %; Monocytes # (M) 1.95 k/uL (0-1.0); Myelocytes % 8 %; Neutrophils % (M) 70 %; Nucleated Red Blood Cells 0 /100 WBC (0-0); Total Cells Counted 200
[2018-12-26 08:42] LABS: Polychromasia Present
[2018-12-26] MEDS: SYMBICORT 80-4.5 MCG INHALER INHALATION SCH (09:21)
[2018-12-26] MEDS: CALCIUM CARBONATE 500 MG CHEWABLE PO SCH (10:06)
[2018-12-26] MEDS: OXYBUTYNIN 10 MG TAB.ER.24 PO SCH (10:07)
[2018-12-26] MEDS: CHOLECALCIFEROL 1,000 UNIT TAB PO SCH (10:07)
[2018-12-26] MEDS: valACYclovir HCL 1,000 MG TABLET PO SCH (10:07)
[2018-12-26] MEDS: LINAGLIPTIN 5 MG TABLET PO SCH (10:07)
[2018-12-26] MEDS: ATORVASTATIN 40 MG TAB PO SCH (10:07)
[2018-12-26] MEDS: FERROUS SULFATE 325 MG TAB PO SCH (10:07)
[2018-12-26] MEDS: MAGNESIUM OXIDE 400 MG TAB PO SCH (10:11)
[2018-12-26] MEDS: MONTELUKAST 10 MG TAB PO SCH (10:11)
[2018-12-26] MEDS: METOPROLOL TARTRATE 25 MG TAB PO SCH (10:11)
[2018-12-26 11:51] LABS: Glucose,Whole Blood 98 mg/dL (75-99)
[2018-12-26 13:24] VITALS: RESP 18
--- NOTE | 2018-12-26 14:03 | P.PN ---
Subjective Progress Note Date: 12/26/18 Principal diagnosis: MPD, iron deficiency Pt seen in f/u, She is very happy to have the packing out of her nose, she has had no bleeding since, she feels like she can taste now. Denies fever, vomiting , bleeding, she is receiving a unit of blood. Objective - Vital Signs Vital signs: Vital Signs Temp 97.9 F 12/26/18 12:52 Pulse 78 12/26/18 12:52 Resp 18 12/26/18 12:52 BP 126/60 12/26/18 12:52 Pulse Ox 97 12/26/18 12:52 Intake & Output 12/25/18 12/26/18 12/26/18 18:59 06:59 18:59 Intake Total 240 60 589 Output Total 1200 1 Balance -960 59 589 Intake: IV 10 NS 10 Intake, IV Titration 50 Amount cefTRIAXone 1 gm In 50 Sodium Chloride 0.9% 50 ml @ 100 mls/hr IVPB Q24HR [facility] Rx#:[id number] Oral 240 240 Blood Product 349 Platelet Irr Pheresis 349 Acda Unit [id number] Rc Irr Cpda1 Unit 0 [id number] Output: Urine 1200 1 Other: Voiding Method Toilet # Voids 1 - Exam Patient sitting at the side of the bed, she is able to move her own body weight independently, she is smiling, conversing, A&Ox4, no acute distress, respirations even and unlabored - Constitutional General appearance: Present: cooperative, no acute distress, thin - EENT Eyes: Present: anicteric sclerae - Labs CBC & Chem 7: 12/26/18 06:24 12/26/18 06:24 Labs: Abnormal Lab Results - Last 24 Hours (Table) 12/21/18 12/25/18 12/25/18 Range/Units 19:45 16:51 20:49 WBC (3.8-10.6) k/uL RBC (3.80-5.40) m/uL Hgb (11.4-16.0) gm/dL Hct (34.0-46.0) % MCHC (31.0-37.0) g/dL RDW (11.5-15.5) % Plt Count (150-450) k/uL Neutrophils # (Manual) (1.3-7.7) k/uL Monocytes # (Manual) (0-1.0) k/uL Metamyelocytes # (Man) (0) k/uL Myelocytes # (Manual) (0) k/uL Chloride (98-107) mmol/L BUN (7-17) mg/dL POC Glucose (mg/dL) 146 H 123 H (75-99) mg/dL Calcium (8.4-10.2) mg/dL Crossmatch See Detail 12/26/18 12/26/18 12/26/18 Range/Units 06:24 06:24 06:41 WBC 48.7 H (3.8-10.6) k/uL RBC 2.29 L (3.80-5.40) m/uL Hgb 6.8 L* (11.4-16.0) gm/dL Hct 22.7 L (34.0-46.0) % MCHC 29.9 L (31.0-37.0) g/dL RDW 17.4 H (11.5-15.5) % Plt Count 42 L (150-450) k/uL Neutrophils # (Manual) 37.90 H (1.3-7.7) k/uL Monocytes # (Manual) 1.95 H (0-1.0) k/uL Metamyelocytes # (Man) 1.46 H (0) k/uL Myelocytes # (Manual) 3.90 H (0) k/uL Chloride 110 H (98-107) mmol/L BUN 21 H (7-17) mg/dL POC Glucose (mg/dL) 101 H (75-99) mg/dL Calcium 8.1 L (8.4-10.2) mg/dL Crossmatch 12/26/18 Range/Units 09:23 WBC (3.8-10.6) k/uL RBC (3.80-5.40) m/uL Hgb (11.4-16.0) gm/dL Hct (34.0-46.0) % MCHC (31.0-37.0) g/dL RDW (11.5-15.5) % Plt Count (150-450) k/uL Neutrophils # (Manual) (1.3-7.7) k/uL Monocytes # (Manual) (0-1.0) k/uL Metamyelocytes # (Man) (0) k/uL Myelocytes # (Manual) (0) k/uL Chloride (98-107) mmol/L BUN (7-17) mg/dL POC Glucose (mg/dL) (75-99) mg/dL Calcium (8.4-10.2) mg/dL Crossmatch See Detail Microbiology - Last 24 Hours (Table) 12/22/18 14:23 Blood Culture - Preliminary Blood No Growth after 72 hours Assessment and Plan (1) Myeloproliferative disorder Narrative/Plan: Pt just established care with Dr. Gunter earlier this month. Her labs here are near her baseline. Increased WBC is mostly neutrophiles, range is stable. Plt stable. Hgb is down from baseline of 9 but, she is noted to have iron deficiency, she is receiving a unit of blood for Hgb of 6.8 today. Iron will be supplemented after treatment of infection. CBC monitoring while inpatient There are test results sill pending from [facility] in [place]. F/U already sched with Dr. Gunter, appt in chart Current Visit: Yes Status: Chronic Priority: Medium Code(s): D47.1 - CHRONIC MYELOPROLIFERATIVE DISEASE SNOMED Code(s): 644965541
[2018-12-26 16:14] VITALS: BP 124/62; PULSE 80; TEMP 97.6
[2018-12-26 16:53] LABS: Glucose,Whole Blood 97 mg/dL (75-99)
--- NOTE | 2018-12-27 07:02 | DS ---
DISCHARGE SUMMARY FINAL DIAGNOSES: 1. Acute epistaxis right sided with acute blood loss anemia, status post transfusions and as well as nasal endoscope with control of hemorrhage cauterization. 2. History of ongoing myeloproliferative disorder, possibly chronic myeloid leukemia. 3. Paroxysmal atrial fibrillation with a fast ventricular rate. 4. Thrombocytopenia. 5. Increased WBC. 6. History of asthma. 7. History of coronary artery disease. 8. History of diabetes mellitus type 2. 9. History of cholecystectomy. 10.History of hernia surgery. 11.FULL CODE. DISCHARGE DISPOSITION: The patient will be discharged in stable condition with guarded prognosis. Total time taken 35 minutes. HISTORY OF PRESENT ILLNESS: This 78-year-old woman with a past medical history of multiple medical problems as mentioned earlier being followed by Dr. Blanca Dominguez in the outpatient setting was admitted with epistaxis and acute blood loss anemia. The patient also had myeloproliferative disorder in the background. Hemoglobin went down 6.8. Patient was multiply transfused. Patient improved significantly. ENT saw the patient, did a cauterization. Also seen by Dr. Gunter and Dr. Gunter has recommended outpatient followup. On exam, vitals are stable. CARDIOVASCULAR: S1, S2 muffled. ABDOMEN: Soft. NERVOUS SYSTEM: No focal deficits. DISCHARGE ADVICE: 1. Diet is cardiac. 2. Activity limited until followup. 3. Follow up with Dr. Dominguez in 2 to 3 days. 4. Follow up with ENT p.r.n. 5. Follow up with Dr. Gunter as recommended. Medications are: 1. Albuterol p.r.n. 2. Calcium 1200 mg p.o. daily. 3. Vitamin D3, 1000 daily. 4. Vitamin B12, 500 mcg p.o. q.h.s. 5. Voltaren gel daily p.r.n. 6. Iron sulfate 325 mg p.o. daily. 7. Advair 250/50 one puff b.i.d. 8. Magnesium oxide 800 mg p.o. daily. 9. Lopressor 25 mg p.o. b.i.d. 10.Singulair 10 mg p.o. daily. 11.Multivitamins 1 p.o. q.h.s. 12.Ditropan XL 10 mg p.o. daily. 13.KCl 99 mg p.o. daily. 14.Vitamin B-6, 100 mg p.o. q.h.s. 15.Ranitidine 150 mg p.o. b.i.d. 16.Januvia 100 mg p.o. daily. 17.Valacyclovir 1000 mg p.o. daily. 18.Tylenol p.r.n. 19.Lipitor 40 mg p.o. daily. 20.Ceftin 500 mg p.o. _for 1 week. Once again the patient will be discharged in stable condition with guarded prognosis. MMODL / IJN: [id number] / MTDD
== END 2018-12-26 17:21 | disposition home or self-care (01) | DRG 151 ==
LOC: EC 16:57 → SUPCPDRO 16:57 → 4MS4W 23:45 → 4SSUR 12-22 00:03 → 2SICU 12-22 08:55 → 3SCARD 12-23 12:08
PROVIDERS: ADMIT Hospitalist; ATTEND Hospitalist
PROC: 2Y41X5Z Packing of Nasal Region using Packing Material (ICD-10-PCS; principal; 2018-12-21)
PROC: 30233R1 Transfusion of Nonautologous Platelets into Peripheral Vein, Percutaneous Approach (ICD-10-PCS; 2018-12-22)
PROC: 30233N1 Transfusion of Nonautologous Red Blood Cells into Peripheral Vein, Percutaneous Approach (ICD-10-PCS; 2018-12-22)
PROC: 093K8ZZ Control Bleeding in Nasal Mucosa and Soft Tissue, Via Natural or Artificial Opening Endoscopic (ICD-10-PCS; 2018-12-25)
DX: R04.0 Epistaxis (principal); D62 Acute posthemorrhagic anemia; D61.818 Other pancytopenia; D47.1 Chronic myeloproliferative disease; I95.9 Hypotension, unspecified; D50.0 Iron deficiency anemia secondary to blood loss (chronic); E11.9 Type 2 diabetes mellitus without complications; I10 Essential (primary) hypertension; E78.5 Hyperlipidemia, unspecified; I25.10 Atherosclerotic heart disease of native coronary artery without angina pectoris; J45.909 Unspecified asthma, uncomplicated; I89.0 Lymphedema, not elsewhere classified; Z79.82 Long term (current) use of aspirin; Z79.84 Long term (current) use of oral hypoglycemic drugs; Z79.899 Other long term (current) drug therapy; Z92.3 Personal history of irradiation; Z90.49 Acquired absence of other specified parts of digestive tract; Z90.710 Acquired absence of both cervix and uterus; Z95.5 Presence of coronary angioplasty implant and graft; Z85.3 Personal history of malignant neoplasm of breast; Z88.1 Allergy status to other antibiotic agents; Z88.0 Allergy status to penicillin; Z88.2 Allergy status to sulfonamides; Z88.8 Allergy status to other drugs, medicaments and biological substances; I48.0 Paroxysmal atrial fibrillation; Z87.891 Personal history of nicotine dependence
CPT/HCPCS: 30901; 36415; 71045; 80048; 80053; 83605; 83735; 84100; 84443; 84550; 85025; 85027; 85610; 85730; 86850; 86900; 86901; 86920; 87040; 93306; 93970; 94640; 96360; 96361; 99285